=== PATIENT | male | born 1950 ===

== ENCOUNTER 2017-06-27 12:33 | Inpatient (IN) | payer MEDICARE, MEDICAID ==
[2017-06-27 12:33] VITALS: BMI 63.4
--- NOTE | 2017-06-27 13:52 | C.PDOC ---
History Of Present Illness 67 y/o male with history of CHF presents to ED with complaints of dyspnea on exertion and increased low extremity edema. Patient states he has been off lasix for 2 weeks and has been drinking fluids liberally because he became homeless and has been staying in halfway and does not take lasix there because he has to urinate multiple times. Patient denies any other complaints at this time. Time Seen by Provider: 06/27/17 13:42 Chief Complaint (Nursing): Shortness Of Breath History Per: Patient History/Exam Limitations: no limitations Onset/Duration Of Symptoms: Days Current Symptoms Are (Timing): Still Present Past Medical History Reviewed: Historical Data, Nursing Documentation, Vital Signs Vital Signs: Last Vital Signs Temp 98.1 F 06/27/17 21:00 Pulse 73 06/27/17 22:01 Resp 18 06/27/17 21:00 BP 153/74 H 06/27/17 21:12 Pulse Ox 95 06/27/17 21:55 - Medical History PMH: Arthritis (B/L KNEE; BACK), Cardia Arrhythmia, HTN Surgical History: Pacemaker - [facility] Procedures RESPIRATORY VENTILATION, GREATER THAN 96 CONSECUTIVE HOURS (03/17/16) Family History: States: Unknown Family Hx - Social History Hx Alcohol Use: No Hx Substance Use: No - Immunization History Hx Tetanus Toxoid Vaccination: Yes Hx Influenza Vaccination: No Hx Pneumococcal Vaccination: No Review Of Systems Constitutional: Negative for: Fever, Chills Cardiovascular: Negative for: Chest Pain Respiratory: Negative for: Cough, Shortness of Breath Skin: Negative for: Rash Physical Exam - Physical Exam Appears: Non-toxic, No Acute Distress, Other (Morbidly obese) Skin: Warm, Dry, No Rash Head: Atraumatic, Normacephalic Eye(s): bilateral: Normal Inspection Oral Mucosa: Moist Neck: Normal ROM, Supple Cardiovascular: Rhythm Regular, Other (S1S2S3) Respiratory: Rales (Mild), No Rhonchi, No Wheezing Gastrointestinal/Abdominal: Soft, No Tenderness, No Guarding, No Rebound Extremity: Normal ROM, Other (low extremities pitting edema, (+)stasis dermatitis symmetrically b/l) Pulses: Left Dorsalis Pedis: Normal, Right Dorsalis Pedis: Normal Neurological/Psych: Oriented x3, Normal Motor, Normal Sensation ED Course And Treatment - Laboratory Results Result Diagrams: 06/27/17 14:18 06/27/17 14:18 O2 Sat by Pulse Oximetry: 92 (RA) - Radiology CXR: Interpreted by Me CXR Interpretation: Yes: Other (+ mild CHF) Progress Note: 1800: re-eval only 1400 cc urine produced in 4 hours. Lasix 60 IV ordered again. Disposition Doctor Will See Patient In The: Hospital Counseled Patient/Family Regarding: Studies Performed, Diagnosis - Disposition Disposition: HOSPITALIZED Disposition Time: 16:00 Condition: GOOD - Clinical Impression Clinical Impression: Chronic congestive heart failure - Scribe Statement The provider has reviewed the documentation as recorded by the Scribeladia Blackmon All medical record entries made by the Micheleibeladia were at my direction and personally dictated by me. I have reviewed the chart and agree that the record accurately reflects my personal performance of the history, physical exam, medical decision making, and the department course for this patient. I have also personally directed, reviewed, and agree with the discharge instructions and disposition.
--- NOTE | 2017-06-27 14:07 | RAD ---
HISTORY: SOB COMPARISON: Chest x-ray performed 03/26/16 TECHNIQUE: Chest, one view. FINDINGS: LUNGS: Mild right basilar atelectasis/infiltrate. Please note that chest x-ray has limited sensitivity for the detection of pulmonary masses. PLEURA: No significant pleural effusion identified. No definite pneumothorax . CARDIOVASCULAR: Cardiomegaly. Left-sided AICD. Atherosclerotic calcifications. OSSEOUS STRUCTURES: No acute osseous abnormality identified. VISUALIZED UPPER ABDOMEN: Unremarkable. OTHER FINDINGS: None. IMPRESSION: Cardiomegaly. Left-sided pacemaker. Atherosclerotic calcifications. Mild right basilar atelectasis/infiltrate.
[2017-06-27 14:24] LABS: BASO % 0.3 % (0.0-2.0); EOS # 0.4 K/uL (0.0-0.7); EOS % 3.5 % (0.0-4.0); HEMOGLOBIN 12.9 g/dL (12.0-18.0); LYMPH # 1.8 K/uL (1.0-4.3); LYMPH % 17.1 % (20.0-40.0); MEAN CORPUSCULAR HEMOGLOBIN 30.3 pg (27.0-31.0); MEAN CORPUSCULAR HGB CONC 33.6 g/dL (33.0-37.0); MEAN PLATELET VOLUME 7.9 fL (7.2-11.7); MONO # 1.2 K/uL (0.0-0.8); MONO % 11.5 % (0.0-10.0); NEUT # 7.1 K/uL (1.8-7.0); NEUT % 67.6 % (50.0-75.0); NRBC % 0.1 % (0.0-2.0); RBC 4.27 Mil/uL (4.40-5.90); RED CELL DISTRIBUTION WIDTH 13.4 % (11.5-14.5); WHITE BLOOD COUNT 10.5 K/uL (4.8-10.8)
[2017-06-27 14:33] LABS: INR 1.3; PROTHROMBIN TIME 14.2 SECONDS (9.7-12.2)
[2017-06-27 14:49] LABS: ALBUMIN 3.8 g/dL (3.5-5.0); ALT/SGPT 23 U/L (21-72); AST/SGOT 19 U/L (17-59); BLOOD UREA NITROGEN 19 mg/dL (9-20); CALCIUM 8.4 mg/dl (8.6-10.4); GFR AFRICAN-AMERICAN > 60; GFR NON-AFRICAN AMERICAN > 60
[2017-06-27 14:50] LABS: ALB/GLOB RATIO 0.8 (1.0-2.1)
[2017-06-27 15:00] LABS: B-TYPE NATRIURETIC PEPTIDE 172 pg/mL (0-900)
[2017-06-27] MEDS ORDERED: Potassium Chloride 10 mEq ER Tab PO STA (15:04)
[2017-06-27] MEDS ORDERED: Potassium Chloride 20 mEq ER Tab PO ONE (15:22)
[2017-06-27 15:43] LABS: SQUAMOUS EPITHIAL < 1 /hpf (0-5); URINE BACTERIA RARE (<OCC); URINE BILIRUBIN NEGATIVE (NEGATIVE); URINE BLOOD 1+ (NEGATIVE); URINE CLARITY Clear (Clear); URINE COLOR Yellow (YELLOW); URINE GLUCOSE (UA) NORMAL (Normal); URINE LEUKOCYTE ESTERASE 3+ Leu/uL (Negative); URINE NITRATE NEGATIVE (NEGATIVE); URINE PROTEIN NEGATIVE (NEGATIVE); URINE UROBILINOGEN NORMAL mg/dL (0.2-1.0)
--- NOTE | 2017-06-27 16:55 | CP.PCM.HP ---
History of Present Illness - History of Present Illness History of Present Illness: PGY-1 H&P for Dr. Ward CC: Leg swelling This is a 67 year old male with PMHx Cardiac Arrthymia s/p ICD placement, hypertension, severe morbid obesity who presents to the hospital complaining of leg swelling. This began about 2 weeks ago. Patient denies any alleviating or exacerbating factors. There is intermittent pain usually when he wakes up but this quickly resolves. Patient complains of dyspnea on exertion but states that this is chronic. He is unable to ambulate more than half a block before getting fatigued. Patient attributes this to his weight, and he is considering bariatric surgery in the future. Patient states that he has not been taking his furosemide because he does not like that it causes him to urinate excessively. PMHx: Unspecified cardiac arrthymia (unknown to patient why he received the AICD ), HTN, severe morbid obesity PSHx: AICD placement in 2006, battery changed in 2013 Allergies: NKDA Social: Former smoker quit 12 years ago. Used to smoke 2 ppd for about 30-35 years. Denies alcohol, drugs. Lives in a group home at the moment. PMD: Dr. Ward Underpresser Hand: Dr. Robins (AICD was checked 3 weeks ago and is working normally per patient) Home meds: Amlodipine 5 mg PO daily, Coreg 25 mg PO BID, Losartan 100 mg PO daily, Lasix 40 mg PO daily, Aspirin 81 mg PO daily, Nifedipine ER 60 mg PO daily, Digoxin 0.125 mg PO daily, Naproxen 500 mg PO BID Present on Admission - Present on Admission Any Indicators Present on Admission: No Review of Systems - Constitutional Constitutional: absent: Chills, Fever - EENT Eyes: absent: Change in Vision Ears: absent: Decreased Hearing Nose/Mouth/Throat: absent: Nasal Congestion - Cardiovascular Cardiovascular: absent: Chest Pain - Respiratory Respiratory: Dyspnea on Exertion. absent: Cough, Dyspnea - Gastrointestinal Gastrointestinal: absent: Abdominal Pain, Constipation, Diarrhea, Nausea, Vomiting - Genitourinary Genitourinary: absent: Dysuria - Neurological Neurological: absent: Weakness - Psychiatric Psychiatric: absent: Anxiety - Endocrine Endocrine: absent: Fatigue, Palpitations Past Patient History - Past Medical History & Family History Past Medical History?: Yes - Past Social History Smoking Status: Never Smoked - CARDIAC Hx Cardia Arrhythmia: Yes Hx Hypertension: Yes Hx Pacemaker: Yes - MUSCULOSKELETAL/RHEUMATOLOGICAL Hx Arthritis: Yes (B/L KNEE; BACK) - PSYCHIATRIC Hx Substance Use: No - SURGICAL HISTORY Other/Comment: PM - ANESTHESIA Hx Anesthesia: Yes Hx Anesthesia Reactions: No Meds Allergies/Adverse Reactions: Allergies Allergy/AdvReac Type Severity Reaction Status Date / Time No Known Allergies Allergy Verified 12/22/15 14:22 Physical Exam - Constitutional Appears: No Acute Distress - Head Exam Head Exam: ATRAUMATIC, NORMOCEPHALIC - Eye Exam Eye Exam: EOMI, PERRL - ENT Exam ENT Exam: Mucous Membranes Moist - Respiratory Exam Respiratory Exam: Clear to Auscultation Bilateral, NORMAL BREATHING PATTERN. absent: Rales, Rhonchi, Wheezes - Cardiovascular Exam Cardiovascular Exam: REGULAR RHYTHM, +S1, +S2 - GI/Abdominal Exam GI & Abdominal Exam: Normal Bowel Sounds, Soft. absent: Tenderness Additional comments: Severely morbidly obese body habitus - Extremities Exam Additional comments: Non-pitting edema bilaterally. Legs with evidence of venous insufficiency bilaterally with some weeping noted Distal pedal pulses palpated bilaterally - Neurological Exam Neurological exam: Alert, CN II-XII Intact, Oriented x3 - Psychiatric Exam Psychiatric exam: Normal Affect, Normal Mood - Skin Skin Exam: Dry, Warm Results - Vital Signs Recent Vital Signs: Last Vital Signs Temp 98.5 F 06/27/17 15:31 Pulse 76 06/27/17 15:31 Resp 20 06/27/17 15:31 BP 107/66 06/27/17 15:31 Pulse Ox 92 L 06/27/17 16:26 - Labs Result Diagrams: 06/27/17 14:18 06/27/17 14:18 Labs: Laboratory Results - last 24 hr 06/27/17 06/27/17 06/27/17 14:18 14:18 14:18 WBC 10.5 RBC 4.27 L Hgb 12.9 Hct 38.4 MCV 90.0 MCH 30.3 MCHC 33.6 RDW 13.4 Plt Count 340 MPV 7.9 Neut % (Auto) 67.6 Lymph % (Auto) 17.1 L Nobles % (Auto) 11.5 H Eos % (Auto) 3.5 Baso % (Auto) 0.3 Neut # 7.1 H Lymph # 1.8 Nobles # 1.2 H Eos # 0.4 Baso # 0.0 PT 14.2 H INR 1.3 APTT 30 Sodium 136 Potassium 4.0 Chloride 99 Carbon Dioxide 29 Anion Gap 12 BUN 19 Creatinine 0.8 Est GFR ( Amer) > 60 Est GFR (Non-Af Amer) > 60 Random Glucose 104 Calcium 8.4 L Total Bilirubin 0.8 AST 19 ALT 23 Alkaline Phosphatase 78 Troponin I 0.0160 NT-Pro-B Natriuret Pep 172 Total Protein 8.3 Albumin 3.8 Globulin 4.5 H Albumin/Globulin Ratio 0.8 L Urine Color Urine Clarity Urine pH Ur Specific Converse Urine Protein Urine Glucose (UA) Urine Ketones Urine Blood Urine Nitrate Urine Bilirubin Urine Urobilinogen Ur Leukocyte Esterase Urine WBC (Auto) Urine RBC (Auto) Ur Squamous Epith Cells Urine Bacteria 06/27/17 15:33 WBC RBC Hgb Hct MCV MCH MCHC RDW Plt Count MPV Neut % (Auto) Lymph % (Auto) Nobles % (Auto) Eos % (Auto) Baso % (Auto) Neut # Lymph # Nobles # Eos # Baso # PT INR APTT Sodium Potassium Chloride Carbon Dioxide Anion Gap BUN Creatinine Est GFR ( Amer) Est GFR (Non-Af Amer) Random Glucose Calcium Total Bilirubin AST ALT Alkaline Phosphatase Troponin I NT-Pro-B Natriuret Pep Total Protein Albumin Globulin Albumin/Globulin Ratio Urine Color Yellow Urine Clarity Clear Urine pH 5.0 Ur Specific Converse 1.009 Urine Protein Negative Urine Glucose (UA) Normal Urine Ketones Negative Urine Blood 1+ H Urine Nitrate Negative Urine Bilirubin Negative Urine Urobilinogen Normal Ur Leukocyte Esterase 3+ H Urine WBC (Auto) 35 H Urine RBC (Auto) 15 H Ur Squamous Epith Cells < 1 Urine Bacteria Rare Assessment & Plan - Assessment and Plan (Free Text) Plan: Leg swelling Likely due to venous insufficiency This is NOT CHF based on clinical exam and objective findings No congestion seen on CXR. Pro-BNP 172 F/u lower extremity duplex Lasix 80 mg IV Q12 x2 doses followed by 60 mg IV Q12 x2 doses followed by 40 mg IV Q12 x2 doses History of Hypertension Resume home Amlodipine 5 mg PO daily Resume home Coreg 25 mg PO BID Resume home Losartan 100 mg PO daily Resume home Nifedipine ER 60 mg PO daily History of AICD Per patient, it was checked by cardiology 3 weeks ago and is working properly F/u digoxin level before resuming home digoxin 0.125 mg PO daily Prophylactic Measure Heart Healthy Diet Heparin 5000 units SC Q8 Protonix 40 mg PO daily Case DW Dr. Sylvia Fowler PGY-1
[2017-06-28 06:55] LABS: ALB/GLOB RATIO 0.9 (1.0-2.1); ALBUMIN 3.7 g/dL (3.5-5.0); ALT/SGPT 28 U/L (21-72); AST/SGOT 20 U/L (17-59); BLOOD UREA NITROGEN 20 mg/dL (9-20); CALCIUM 8.1 mg/dl (8.6-10.4); GFR AFRICAN-AMERICAN > 60; GFR NON-AFRICAN AMERICAN > 60
[2017-06-28 06:59] LABS: BASO # 0.1 K/uL (0.0-0.2); BASO % 0.6 % (0.0-2.0); EOS # 0.4 K/uL (0.0-0.7); EOS % 3.7 % (0.0-4.0); HEMOGLOBIN 13.1 g/dL (12.0-18.0); LYMPH # 1.8 K/uL (1.0-4.3); MEAN CELL VOLUME 89.2 fL (80.0-94.0); MEAN CORPUSCULAR HEMOGLOBIN 30.4 pg (27.0-31.0); MEAN CORPUSCULAR HGB CONC 34.1 g/dL (33.0-37.0); MEAN PLATELET VOLUME 8.3 fL (7.2-11.7); MONO # 0.9 K/uL (0.0-0.8); MONO % 9.2 % (0.0-10.0); NEUT % 68.5 % (50.0-75.0); RBC 4.3 Mil/uL (4.40-5.90); RED CELL DISTRIBUTION WIDTH 13.6 % (11.5-14.5); WHITE BLOOD COUNT 10.2 K/uL (4.8-10.8)
--- NOTE | 2017-06-28 07:53 | CP.PCM.PN ---
<Yvon Fowler - Last Filed: 06/28/17 20:36> Subjective - Date & Time of Evaluation Date of Evaluation: 06/28/17 Time of Evaluation: 11:10 - Subjective Subjective: Medicine progress note for Dr. Ward Patient seen and examined. Patient reports decreased leg swelling. He is urinating large amounts due to the IV lasix. Patient reports no shortness of breath or other acute complaints. Objective - Vital Signs/Intake and Output Vital Signs (last 24 hours): Temp Pulse Resp BP Pulse Ox 97.2 F L 81 20 126/69 95 06/28/17 04:00 06/28/17 04:42 06/28/17 04:00 06/28/17 04:00 06/28/17 04:00 Intake and Output: 06/28/17 06/28/17 06:59 18:59 Intake Total 240 Output Total 1650 Balance -1410 - Medications Medications: Current Medications Amlodipine Besylate (Norvasc) 5 mg PO DAILY [facility] Aspirin (Aspirin Chewable) 81 mg PO DAILY [facility] Carvedilol (Coreg) 25 mg PO BID [facility] Last Admin: 06/27/17 19:01 Dose: 25 mg Digoxin (Lanoxin) 0.125 mg PO DAILY [facility] Furosemide (Lasix) 80 mg IVP Q12 [facility] Stop: 06/28/17 10:01 Last Admin: 06/27/17 21:12 Dose: 80 mg Furosemide (Lasix) 60 mg IVP Q12 [facility] Stop: 06/29/17 10:01 Furosemide (Lasix) 40 mg IVP Q12H [facility] Stop: 06/30/17 10:01 Heparin Sodium (Porcine) (Heparin) 5,000 units SC Q8 [facility] Last Admin: 06/28/17 05:27 Dose: 5,000 units Losartan Potassium (Cozaar) 100 mg PO DAILY [facility] Nifedipine (Procardia Xl) 60 mg PO DAILY [facility] Pantoprazole Sodium (Protonix Ec Tab) 40 mg PO DAILY [facility] - Labs Labs: 06/28/17 06:33 06/28/17 06:33 PT 14.2 SECONDS (9.7-12.2) H 06/27/17 14:18 INR 1.3 06/27/17 14:18 APTT 30 SECONDS (21-34) 06/27/17 14:18 - Additional Findings Additional findings: - Constitutional Appears: No Acute Distress - Head Exam Head Exam: ATRAUMATIC, NORMOCEPHALIC - Eye Exam Eye Exam: EOMI, PERRL - ENT Exam ENT Exam: Mucous Membranes Moist - Respiratory Exam Respiratory Exam: Clear to Auscultation Bilateral, NORMAL BREATHING PATTERN. absent: Rales, Rhonchi, Wheezes - Cardiovascular Exam Cardiovascular Exam: REGULAR RHYTHM, +S1, +S2 - GI/Abdominal Exam GI & Abdominal Exam: Normal Bowel Sounds, Soft. absent: Tenderness Additional comments: Severely morbidly obese body habitus - Extremities Exam Additional comments: Non-pitting edema bilaterally. Legs with evidence of venous insufficiency bilaterally with some weeping noted Distal pedal pulses palpated bilaterally - Neurological Exam Neurological exam: Alert, CN II-XII Intact, Oriented x3 - Psychiatric Exam Psychiatric exam: Normal Affect, Normal Mood - Skin Skin Exam: Dry, Warm Assessment and Plan - Assessment and Plan (Free Text) Plan: Leg swelling Likely due to venous insufficiency This is NOT CHF based on clinical exam and objective findings No congestion seen on CXR. Pro-BNP 172 F/u lower extremity duplex silver sulfadiazine topical TID to affected regions Per Dr. Ward, once DVT is ruled out, patient may be placed on unna boots Lasix 80 mg IV Q12 x2 doses followed by 60 mg IV Q12 x2 doses followed by 40 mg IV Q12 x2 doses History of Hypertension Resume home Coreg 25 mg PO BID Resume home Losartan 100 mg PO daily Resume home Nifedipine ER 60 mg PO daily History of AICD Per patient, it was checked by cardiology 3 weeks ago and is working properly Resume home digoxin 0.125 mg PO daily Prophylactic Measure Heart Healthy Diet Heparin 5000 units SC Q8 Protonix 40 mg PO daily Case DW Dr. Sylvia Fowler PGY-1 <Angel Ward Jr. - Last Filed: 06/29/17 19:33> Objective - Vital Signs/Intake and Output Vital Signs (last 24 hours): Temp Pulse Resp BP Pulse Ox 98.1 F 66 20 116/74 94 L 06/29/17 15:32 06/29/17 15:32 06/29/17 15:32 06/29/17 18:25 06/29/17 15:32 Intake and Output: 06/29/17 06/30/17 18:59 06:59 Output Total 400 Balance -400 - Medications Medications: Current Medications Aspirin (Aspirin Chewable) 81 mg PO DAILY [facility] Last Admin: 06/29/17 09:56 Dose: 81 mg Carvedilol (Coreg) 25 mg PO BID [facility] Last Admin: 06/29/17 18:25 Dose: 25 mg Digoxin (Lanoxin) 0.125 mg PO DAILY [facility] Last Admin: 06/29/17 09:56 Dose: 0.125 mg Furosemide (Lasix) 40 mg IVP Q12H [facility] Stop: 06/30/17 10:01 Heparin Sodium (Porcine) (Heparin) 5,000 units SC Q8 [facility] Last Admin: 06/29/17 14:09 Dose: 5,000 units Losartan Potassium (Cozaar) 100 mg PO DAILY [facility] Last Admin: 06/29/17 09:56 Dose: 100 mg Naproxen (Anaprox) 275 mg PO BID PRN PRN Reason: Pain, moderate (4-7) Last Admin: 06/29/17 18:25 Dose: 275 mg Nifedipine (Procardia Xl) 60 mg PO DAILY [facility] Last Admin: 06/29/17 09:56 Dose: 60 mg Pantoprazole Sodium (Protonix Ec Tab) 40 mg PO DAILY [facility] Last Admin: 06/29/17 09:57 Dose: 40 mg Silver Sulfadiazine (Silvadene 1% 20 Gm) 1 ea TOP TID [facility] Last Admin: 06/29/17 18:25 Dose: 1 applic - Labs Labs: 06/29/17 06:30 06/29/17 06:30 PT 14.2 SECONDS (9.7-12.2) H 06/27/17 14:18 INR 1.3 06/27/17 14:18 APTT 30 SECONDS (21-34) 06/27/17 14:18 Attending/Attestation - Attestation I have personally seen and examined this patient.: Yes I have fully participated in the care of the patient.: Yes I have reviewed all pertinent clinical information, including history, physical exam and plan: Yes Notes (Text): 06/29/17 19:33 Agree with resident note and plan of care
[2017-06-28] MEDS: Pantoprazole 40 mg EC Tab PO SCH (10:27)
[2017-06-28] MEDS: Digoxin 125 mcg (0.125 mg) Tab PO SCH (10:28)
[2017-06-28] MEDS: Silver Sulfadiazine 1% Cream (20 gm) TOP SCH ×2 (14:20→17:50)
--- NOTE | 2017-06-28 16:24 | CARD ---
APPROVED REPORT EKG Measurement Heart [id number] DE 214P [id number] <Conclusion> Sinus rhythm with 1st degree AV block Right bundle branch block T wave abnormality, consider inferior ischemia Abnormal ECG
[2017-06-29 06:45] LABS: BASO % 0.4 % (0.0-2.0); EOS # 0.3 K/uL (0.0-0.7); EOS % 3.8 % (0.0-4.0); HEMOGLOBIN 12.9 g/dL (12.0-18.0); LYMPH # 1.7 K/uL (1.0-4.3); MEAN CORPUSCULAR HEMOGLOBIN 31.1 pg (27.0-31.0); MEAN CORPUSCULAR HGB CONC 34.9 g/dL (33.0-37.0); MEAN PLATELET VOLUME 8.3 fL (7.2-11.7); MONO # 0.8 K/uL (0.0-0.8); MONO % 9.2 % (0.0-10.0); NEUT # 5.5 K/uL (1.8-7.0); NEUT % 66.6 % (50.0-75.0); NRBC % 0.1 % (0.0-2.0); RBC 4.16 Mil/uL (4.40-5.90); RED CELL DISTRIBUTION WIDTH 13.6 % (11.5-14.5); WHITE BLOOD COUNT 8.3 K/uL (4.8-10.8)
[2017-06-29 07:01] LABS: ALB/GLOB RATIO 0.9 (1.0-2.1); ALBUMIN 3.6 g/dL (3.5-5.0); ALT/SGPT 24 U/L (21-72); AST/SGOT 23 U/L (17-59); BLOOD UREA NITROGEN 19 mg/dL (9-20); GFR AFRICAN-AMERICAN > 60; GFR NON-AFRICAN AMERICAN > 60
[2017-06-29] MEDS: Digoxin 125 mcg (0.125 mg) Tab PO SCH (09:56)
[2017-06-29] MEDS: NIFEdipine 60 mg ER Tab PO SCH (09:56)
[2017-06-29] MEDS: Pantoprazole 40 mg EC Tab PO SCH (09:57)
[2017-06-29] MEDS ORDERED: NIFEdipine 60 mg ER Tab PO SCH (10:00)
[2017-06-29] MEDS ORDERED: Naproxen 275 mg Tab PO ONE (10:21)
[2017-06-29] MEDS: Silver Sulfadiazine 1% Cream (20 gm) TOP SCH ×3 (11:35→18:25)
--- NOTE | 2017-06-29 15:12 | CP.PCM.PN ---
<Victoria Diaz - Last Filed: 06/29/17 17:01> Subjective - Date & Time of Evaluation Date of Evaluation: 06/29/17 Time of Evaluation: 07:00 - Subjective Subjective: Medicine Progress Note: Patient was seen and examined at bedside in the AM. Patient states he still has pain in his lower extremities he states it feels like a burning pain. Patient denies shortness of breath, chest pain, nausea, vomiting, diarrhea or constipation. Objective - Vital Signs/Intake and Output Vital Signs (last 24 hours): Temp Pulse Resp BP Pulse Ox 99 F 79 20 122/75 96 06/29/17 08:26 06/29/17 09:56 06/29/17 08:26 06/29/17 09:57 06/29/17 08:26 Intake and Output: 06/29/17 06/29/17 06:59 18:59 Intake Total 580 Output Total 975 Balance -395 - Medications Medications: Current Medications Aspirin (Aspirin Chewable) 81 mg PO DAILY [facility] Last Admin: 06/29/17 09:56 Dose: 81 mg Carvedilol (Coreg) 25 mg PO BID [facility] Last Admin: 06/29/17 09:56 Dose: 25 mg Digoxin (Lanoxin) 0.125 mg PO DAILY [facility] Last Admin: 06/29/17 09:56 Dose: 0.125 mg Furosemide (Lasix) 40 mg IVP Q12H [facility] Stop: 06/30/17 10:01 Heparin Sodium (Porcine) (Heparin) 5,000 units SC Q8 [facility] Last Admin: 06/29/17 14:09 Dose: 5,000 units Losartan Potassium (Cozaar) 100 mg PO DAILY [facility] Last Admin: 06/29/17 09:56 Dose: 100 mg Nifedipine (Procardia Xl) 60 mg PO DAILY [facility] Last Admin: 06/29/17 09:56 Dose: 60 mg Pantoprazole Sodium (Protonix Ec Tab) 40 mg PO DAILY [facility] Last Admin: 06/29/17 09:57 Dose: 40 mg Silver Sulfadiazine (Silvadene 1% 20 Gm) 1 ea TOP TID [facility] Last Admin: 06/29/17 14:18 Dose: 1 applic - Labs Labs: 06/29/17 06:30 06/29/17 06:30 PT 14.2 SECONDS (9.7-12.2) H 06/27/17 14:18 INR 1.3 06/27/17 14:18 APTT 30 SECONDS (21-34) 06/27/17 14:18 - Constitutional Appears: No Acute Distress - Head Exam Head Exam: ATRAUMATIC, NORMAL INSPECTION - Eye Exam Eye Exam: EOMI, Normal appearance - ENT Exam ENT Exam: Mucous Membranes Moist - Respiratory Exam Respiratory Exam: Clear to Ausculation Bilateral, NORMAL BREATHING PATTERN - Cardiovascular Exam Cardiovascular Exam: REGULAR RHYTHM, +S1, +S2 - GI/Abdominal Exam GI & Abdominal Exam: Soft, Normal Bowel Sounds. absent: Tenderness Additional comments: obese - Extremities Exam Extremities Exam: Normal Inspection - Neurological Exam Neurological Exam: Alert, Awake, Oriented x3 - Psychiatric Exam Psychiatric exam: Normal Affect, Normal Mood - Skin Skin Exam: Erythema (bilateral lower extremties ) Assessment and Plan - Assessment and Plan (Free Text) Assessment: Leg swelling Likely due to venous insufficiency This is NOT CHF based on clinical exam and objective findings No congestion seen on CXR. Pro-BNP 172 lower extremity duplex: negative Naproxen prn for pain silver sulfadiazine topical TID to affected regions Unna boots will be placed tomorrow 06/30/17 Lasix 80 mg IV Q12 x2 doses followed by 60 mg IV Q12 x2 doses followed by 40 mg IV Q12 x2 doses History of Hypertension Resume home Coreg 25 mg PO BID Resume home Losartan 100 mg PO daily Resume home Nifedipine ER 60 mg PO daily History of AICD Per patient, it was checked by cardiology 3 weeks ago and is working properly Resume home digoxin 0.125 mg PO daily Prophylactic Measure Heart Healthy Diet Heparin 5000 units SC Q8 Protonix 40 mg PO daily will discuss case with Dr. Sylvia Diaz PGY-1 <Angel Ward Jr. - Last Filed: 06/29/17 19:34> Objective - Vital Signs/Intake and Output Vital Signs (last 24 hours): Temp Pulse Resp BP Pulse Ox 98.1 F 66 20 116/74 94 L 06/29/17 15:32 06/29/17 15:32 06/29/17 15:32 06/29/17 18:25 06/29/17 15:32 Intake and Output: 06/29/17 06/30/17 18:59 06:59 Output Total 400 Balance -400 - Medications Medications: Current Medications Aspirin (Aspirin Chewable) 81 mg PO DAILY [facility] Last Admin: 06/29/17 09:56 Dose: 81 mg Carvedilol (Coreg) 25 mg PO BID [facility] Last Admin: 06/29/17 18:25 Dose: 25 mg Digoxin (Lanoxin) 0.125 mg PO DAILY [facility] Last Admin: 06/29/17 09:56 Dose: 0.125 mg Furosemide (Lasix) 40 mg IVP Q12H [facility] Stop: 06/30/17 10:01 Heparin Sodium (Porcine) (Heparin) 5,000 units SC Q8 [facility] Last Admin: 06/29/17 14:09 Dose: 5,000 units Losartan Potassium (Cozaar) 100 mg PO DAILY [facility] Last Admin: 06/29/17 09:56 Dose: 100 mg Naproxen (Anaprox) 275 mg PO BID PRN PRN Reason: Pain, moderate (4-7) Last Admin: 06/29/17 18:25 Dose: 275 mg Nifedipine (Procardia Xl) 60 mg PO DAILY [facility] Last Admin: 06/29/17 09:56 Dose: 60 mg Pantoprazole Sodium (Protonix Ec Tab) 40 mg PO DAILY [facility] Last Admin: 06/29/17 09:57 Dose: 40 mg Silver Sulfadiazine (Silvadene 1% 20 Gm) 1 ea TOP TID [facility] Last Admin: 06/29/17 18:25 Dose: 1 applic - Labs Labs: 06/29/17 06:30 06/29/17 06:30 PT 14.2 SECONDS (9.7-12.2) H 06/27/17 14:18 INR 1.3 06/27/17 14:18 APTT 30 SECONDS (21-34) 06/27/17 14:18 Attending/Attestation - Attestation I have personally seen and examined this patient.: Yes I have fully participated in the care of the patient.: Yes I have reviewed all pertinent clinical information, including history, physical exam and plan: Yes Notes (Text): 06/29/17 19:34 Agree with resident note and plan of care
--- NOTE | 2017-06-29 15:15 | VASCLAB ---
PROCEDURE: Lower Extremity Venous Duplex Exam. HISTORY: leg swelling, rule out venous insufficiency PRIORS: None. TECHNIQUE: Bilateral common femoral, femoral, popliteal and posterior tibial, peroneal and great saphenous veins were evaluated. Flow was assessed with color Doppler, compressibility, assessment of phasic flow and augmentation response. Report prepared by Ricardo Bagley, BENITA, RVT FINDINGS: RIGHT: 1. Common Femoral Vein: 1.1. Compressibility - Fully compressible: Thrombus - None : Flow - Phasic: Augmentation -Normal: Reflux - None. 2. Femoral Vein: 2.1. Compressibility - Fully compressible: Thrombus - None : Flow - Phasic: Augmentation -Normal: Reflux - None. 3. Popliteal Vein: 3.1. Compressibility - Fully compressible: Thrombus - None : Flow - Phasic: Augmentation -Normal: Reflux - None. 4. Posterior Tibial Vein: 4.1. Compressibility - Fully compressible: Thrombus - None: Flow - Phasic: Augmentation -Normal: Reflux - None. 5. Peroneal Vein: 5.1. Compressibility - Fully compressible: Thrombus - None: Flow - Phasic: Augmentation -Normal: Reflux - None. 6. Great Saphenous Vein: 6.1. Compressibility - Fully compressible: Thrombus - None: Flow - Phasic: Augmentation - Normal: Reflux - None. LEFT: 1. Common Femoral Vein: 1.1. Compressibility - Fully compressible: Thrombus - None: Flow - Phasic: Augmentation -Normal: Reflux - None. 2. Femoral Vein: 2.1. Compressibility - Fully compressible: Thrombus - None: Flow - Phasic: Augmentation -Normal: Reflux - None. 3. Popliteal Vein: 3.1. Compressibility - Fully compressible: Thrombus - None : Flow - Phasic: Augmentation -Normal: Reflux - None. 4. Posterior Tibial Vein: 4.1. Compressibility - Fully compressible: Thrombus - None: Flow - Phasic: Augmentation -Normal: Reflux - None. 5. Peroneal Vein: 5.1. Compressibility - Fully compressible: Thrombus - None: Flow - Phasic: Augmentation -Normal: Reflux - None. 6. Great Saphenous Vein: 6.1. Compressibility - Fully compressible: Thrombus - None: Flow - Phasic: Augmentation - Normal: Reflux - Yes. OTHER FINDINGS: Right: None significant. Left: Valvular incompetence of the left mid thigh to knee level greater saphenous vein. IMPRESSION: Right: No evidence of deep or superficial vein thrombosis of the right lower extremity.Normal valve function noted of the left side. Left: No evidence of deep or superficial vein thrombosis of the left lower extremity.
[2017-06-29] MEDS ORDERED: Naproxen 275 mg Tab PO PRN (17:00)
--- NOTE | 2017-06-30 06:58 | CP.PCM.PN ---
Subjective - Date & Time of Evaluation Date of Evaluation: 06/30/17 Time of Evaluation: 06:58 - Subjective Subjective: Medicine Progress Note: Patient was seen and examined at bedside in the morning. Patient states he still has pain in his lower extremities but feeling a little better. Patient tolerating diet well and having regular BM. Patient denies shortness of breath , chest pain, nausea, vomiting, diarrhea or constipation. Objective - Vital Signs/Intake and Output Vital Signs (last 24 hours): Temp Pulse Resp BP Pulse Ox 98.4 F 66 20 114/68 95 06/29/17 23:10 06/29/17 23:10 06/29/17 23:10 06/29/17 23:10 06/29/17 23:10 Intake and Output: 06/29/17 06/30/17 18:59 06:59 Intake Total 340 Output Total 400 1900 Balance -400 -1560 - Medications Medications: Current Medications Aspirin (Aspirin Chewable) 81 mg PO DAILY [facility] Last Admin: 06/29/17 09:56 Dose: 81 mg Carvedilol (Coreg) 25 mg PO BID [facility] Last Admin: 06/29/17 18:25 Dose: 25 mg Digoxin (Lanoxin) 0.125 mg PO DAILY [facility] Last Admin: 06/29/17 09:56 Dose: 0.125 mg Furosemide (Lasix) 40 mg IVP Q12H [facility] Stop: 06/30/17 10:01 Last Admin: 06/29/17 22:05 Dose: 40 mg Heparin Sodium (Porcine) (Heparin) 5,000 units SC Q8 [facility] Last Admin: 06/30/17 06:02 Dose: 5,000 units Losartan Potassium (Cozaar) 100 mg PO DAILY [facility] Last Admin: 06/29/17 09:56 Dose: 100 mg Naproxen (Anaprox) 275 mg PO BID PRN PRN Reason: Pain, moderate (4-7) Last Admin: 06/29/17 18:25 Dose: 275 mg Nifedipine (Procardia Xl) 60 mg PO DAILY [facility] Last Admin: 06/29/17 09:56 Dose: 60 mg Pantoprazole Sodium (Protonix Ec Tab) 40 mg PO DAILY [facility] Last Admin: 06/29/17 09:57 Dose: 40 mg Silver Sulfadiazine (Silvadene 1% 20 Gm) 1 ea TOP TID [facility] Last Admin: 06/29/17 18:25 Dose: 1 applic - Labs Labs: 06/29/17 06:30 06/29/17 06:30 PT 14.2 SECONDS (9.7-12.2) H 06/27/17 14:18 INR 1.3 06/27/17 14:18 APTT 30 SECONDS (21-34) 06/27/17 14:18 - Constitutional Appears: No Acute Distress - Head Exam Head Exam: ATRAUMATIC, NORMOCEPHALIC - Eye Exam Eye Exam: EOMI, Normal appearance - ENT Exam ENT Exam: Mucous Membranes Moist - Respiratory Exam Respiratory Exam: Clear to Ausculation Bilateral, Rales, NORMAL BREATHING PATTERN. absent: Rhonchi, Wheezes, Respiratory Distress - Cardiovascular Exam Cardiovascular Exam: REGULAR RHYTHM, +S1, +S2 - GI/Abdominal Exam GI & Abdominal Exam: Soft, Normal Bowel Sounds. absent: Distended, Firm, Tenderness - Extremities Exam Extremities Exam: absent: Normal Inspection Additional comments: Non-pitting edema bilaterally. Legs with evidence of venous insufficiency bilaterally with some weeping noted - Neurological Exam Neurological Exam: Alert, Awake, Oriented x3 - Psychiatric Exam Psychiatric exam: Normal Affect, Normal Mood - Skin Skin Exam: Dry, Intact, Normal Color, Warm Assessment and Plan - Assessment and Plan (Free Text) Plan: 1. Leg swelling Likely due to venous insufficiency This is NOT CHF based on clinical exam and objective findings No congestion seen on CXR. Pro-BNP 172 Lower extremity duplex: No DVTs b/l Discontinued silver sulfadiazine topical TID to affected regions Naproxen 500mg BID prn for pain Lasix 80 mg IV Q12 x2 doses followed by 60 mg IV Q12 x2 doses followed by 40 mg IV Q12 x2 doses Per Dr. Ward, once DVT is ruled out, patient may be placed on unna boots * Unna boots placed on 06/30/17. Must keep on for 7 days. Must cover with cast covers when showering; cannot get wet. * Rocephin 1gm IV Q24h and Vanco 1gm IV Q12h (started on 06/30/17) * PICC line ordered for intermediate antibiotics 2. History of Hypertension Resume home Coreg 25 mg PO BID Resume home Losartan 100 mg PO daily Resume home Nifedipine ER 60 mg PO daily 3. History of AICD Per patient, it was checked by cardiology 3 weeks ago and is working properly Resume home digoxin 0.125 mg PO daily 4. Prophylactic Measure Heart Healthy Diet Heparin 5000 units SC Q8 Protonix 40 mg PO daily Dispo: Case management ordered for DONELL placement. Case Discussed With Dr. Ward
[2017-06-30 07:07] LABS: ALB/GLOB RATIO 0.9 (1.0-2.1); ALBUMIN 3.7 g/dL (3.5-5.0); ALT/SGPT 16 U/L (21-72); AST/SGOT 21 U/L (17-59); BLOOD UREA NITROGEN 18 mg/dL (9-20); CALCIUM 8.1 mg/dl (8.6-10.4); GFR AFRICAN-AMERICAN > 60; GFR NON-AFRICAN AMERICAN > 60
[2017-06-30 07:10] LABS: BASO # 0.1 K/uL (0.0-0.2); BASO % 1.2 % (0.0-2.0); EOS # 0.3 K/uL (0.0-0.7); EOS % 3.7 % (0.0-4.0); HEMOGLOBIN 12.8 g/dL (12.0-18.0); LYMPH % 21.7 % (20.0-40.0); MEAN CELL VOLUME 89.1 fL (80.0-94.0); MEAN CORPUSCULAR HEMOGLOBIN 30.7 pg (27.0-31.0); MEAN CORPUSCULAR HGB CONC 34.5 g/dL (33.0-37.0); MEAN PLATELET VOLUME 8.6 fL (7.2-11.7); MONO # 0.9 K/uL (0.0-0.8); NEUT # 5.9 K/uL (1.8-7.0); NEUT % 63.4 % (50.0-75.0); NRBC % 0.3 % (0.0-2.0); RBC 4.18 Mil/uL (4.40-5.90); RED CELL DISTRIBUTION WIDTH 13.3 % (11.5-14.5); WHITE BLOOD COUNT 9.3 K/uL (4.8-10.8)
[2017-06-30] MEDS: Digoxin 125 mcg (0.125 mg) Tab PO SCH (10:20)
[2017-06-30] MEDS: Pantoprazole 40 mg EC Tab PO SCH (10:20)
[2017-06-30] MEDS: NIFEdipine 60 mg ER Tab PO SCH (10:20)
[2017-06-30] MEDS: Silver Sulfadiazine 1% Cream (20 gm) TOP SCH (10:56)
[2017-06-30] MEDS: Vancomycin 1 gm/NS 200 ml 1 GM/200 ML BAG IVPB SCH (13:55)
[2017-06-30] MEDS: Naproxen 550 mg Tab PO PRN (22:22)
[2017-07-01] MEDS: Vancomycin 1 gm/NS 200 ml 1 GM/200 ML BAG IVPB SCH ×2 (02:49→13:30)
[2017-07-01 06:30] LABS: BASO % 0.4 % (0.0-2.0); EOS # 0.3 K/uL (0.0-0.7); EOS % 4.2 % (0.0-4.0); HEMOGLOBIN 12.8 g/dL (12.0-18.0); LYMPH # 2.1 K/uL (1.0-4.3); LYMPH % 25.1 % (20.0-40.0); MEAN CELL VOLUME 88.7 fL (80.0-94.0); MEAN PLATELET VOLUME 8.1 fL (7.2-11.7); MONO # 0.7 K/uL (0.0-0.8); NEUT % 61.3 % (50.0-75.0); NRBC % 0.1 % (0.0-2.0); RBC 4.13 Mil/uL (4.40-5.90); RED CELL DISTRIBUTION WIDTH 13.5 % (11.5-14.5); WHITE BLOOD COUNT 8.2 K/uL (4.8-10.8)
[2017-07-01 06:50] LABS: ALBUMIN 3.6 g/dL (3.5-5.0); ALT/SGPT 18 U/L (21-72); AST/SGOT 17 U/L (17-59); BLOOD UREA NITROGEN 17 mg/dL (9-20); CALCIUM 7.9 mg/dl (8.6-10.4); GFR AFRICAN-AMERICAN > 60; GFR NON-AFRICAN AMERICAN > 60
--- NOTE | 2017-07-01 07:34 | CP.PCM.PN ---
Subjective - Date & Time of Evaluation Date of Evaluation: 07/01/17 Time of Evaluation: 07:32 - Subjective Subjective: PGY-[address] Ward's service: Pt seen and examined at bedside. Nursing reports no acute events overnight. Patient states he still has pain in his lower extremities but feeling a little better. Patient tolerating diet well and having regular BM. Patient denies shortness of breath, chest pain, nausea, vomiting, diarrhea or constipation. Objective - Vital Signs/Intake and Output Vital Signs (last 24 hours): Temp Pulse Resp BP Pulse Ox 97.7 F 68 20 122/85 95 07/01/17 04:00 07/01/17 04:07 07/01/17 04:00 07/01/17 04:00 07/01/17 04:00 Intake and Output: 07/01/17 07/01/17 06:59 18:59 Intake Total 480 Output Total 900 Balance -420 - Medications Medications: Current Medications Aspirin (Aspirin Chewable) 81 mg PO DAILY [facility] Last Admin: 06/30/17 10:20 Dose: 81 mg Carvedilol (Coreg) 25 mg PO BID [facility] Last Admin: 06/30/17 22:17 Dose: 25 mg Digoxin (Lanoxin) 0.125 mg PO DAILY [facility] Last Admin: 06/30/17 10:20 Dose: 0.125 mg Heparin Sodium (Porcine) (Heparin) 5,000 units SC Q8 [facility] Last Admin: 07/01/17 06:31 Dose: 5,000 units Ceftriaxone Sodium 1 gm/ (Sodium Chloride) 100 mls @ 100 mls/hr IVPB Q24H [facility] Last Admin: 06/30/17 12:30 Dose: 100 mls/hr Vancomycin/Sodium Chloride (Vancomycin 1 Gm/Ns 200 Ml) 1 gm in 200 mls @ 133.333 mls/hr IVPB Q12H [facility] Stop: 07/05/17 14:01 Last Admin: 07/01/17 02:49 Dose: 133.333 mls/hr Losartan Potassium (Cozaar) 100 mg PO DAILY [facility] Last Admin: 06/30/17 10:20 Dose: 100 mg Naproxen (Anaprox Ds) 550 mg PO BID PRN PRN Reason: Pain, Mild (1-3) Last Admin: 06/30/17 22:22 Dose: 550 mg Nifedipine (Procardia Xl) 60 mg PO DAILY [facility] Last Admin: 06/30/17 10:20 Dose: 60 mg Pantoprazole Sodium (Protonix Ec Tab) 40 mg PO DAILY [facility] Last Admin: 06/30/17 10:20 Dose: 40 mg - Labs Labs: 07/01/17 06:21 07/01/17 06:21 PT 14.2 SECONDS (9.7-12.2) H 06/27/17 14:18 INR 1.3 06/27/17 14:18 APTT 30 SECONDS (21-34) 06/27/17 14:18 - Additional Findings Additional findings: - Constitutional Appears: No Acute Distress - Head Exam Head Exam: ATRAUMATIC, NORMOCEPHALIC - Eye Exam Eye Exam: EOMI, Normal appearance - ENT Exam ENT Exam: Mucous Membranes Moist - Respiratory Exam Respiratory Exam: Clear to Ausculation Bilateral, Rales, NORMAL BREATHING PATTERN. absent: Rhonchi, Wheezes, Respiratory Distress - Cardiovascular Exam Cardiovascular Exam: REGULAR RHYTHM, +S1, +S2 - GI/Abdominal Exam GI & Abdominal Exam: Soft, Normal Bowel Sounds. absent: Distended, Firm, Tenderness - Extremities Exam Extremities Exam: absent: Normal Inspection Additional comments: Non-pitting edema bilaterally. Legs with evidence of venous insufficiency bilaterally with some weeping noted - Neurological Exam Neurological Exam: Alert, Awake, Oriented x3 - Psychiatric Exam Psychiatric exam: Normal Affect, Normal Mood - Skin Skin Exam: Dry, Intact, Normal Color, Warm Assessment and Plan - Assessment and Plan (Free Text) Plan: 1. Leg swelling Likely due to venous insufficiency This is NOT CHF based on clinical exam and objective findings No congestion seen on CXR. Pro-BNP 172 Lower extremity duplex: No DVTs b/l Discontinued silver sulfadiazine topical TID to affected regions Naproxen 500mg BID prn for pain Lasix 80 mg IV Q12 x2 doses followed by 60 mg IV Q12 x2 doses followed by 40 mg IV Q12 x2 doses Per Dr. Ward, once DVT is ruled out, patient may be placed on unna boots * Unna boots placed on 06/30/17. Must keep on for 7 days. Must cover with cast covers when showering; cannot get wet. * Rocephin 1gm IV Q24h and Vanco 1gm IV Q12h (started on 06/30/17) * PICC line ordered for [facility] antibiotics 2. History of Hypertension Well controlled during admission Resume home Coreg 25 mg PO BID [facility] home Losartan 100 mg PO daily [facility] Nifedipine ER 60 mg PO daily 3. History of AICD Per patient, it was checked by cardiology 3 weeks ago and is working properly Resume home digoxin 0.125 mg PO daily 4. Prophylactic Measure Heart Healthy Diet Heparin 5000 units SC Q8 Protonix 40 mg PO daily Dispo: Case management ordered for DONELL placement. Case Discussed With Dr. Ward
[2017-07-01] MEDS: Naproxen 550 mg Tab PO PRN (09:50)
[2017-07-01] MEDS: NIFEdipine 60 mg ER Tab PO SCH (09:50)
[2017-07-01] MEDS: Pantoprazole 40 mg EC Tab PO SCH (09:50)
[2017-07-01] MEDS: Digoxin 125 mcg (0.125 mg) Tab PO SCH (09:50)
[2017-07-02] MEDS: Vancomycin 1 gm/NS 200 ml 1 GM/200 ML BAG IVPB SCH ×2 (01:17→14:00)
--- NOTE | 2017-07-02 07:42 | CP.PCM.PN ---
Subjective - Date & Time of Evaluation Date of Evaluation: 07/02/17 Time of Evaluation: 07:40 - Subjective Subjective: PGY-[address] Ward's service: Pt seen and examined at bedside. Nursing reports no acute events overnight. Patient states he still has occasional pain in his lower extremities but this has been a chronic finding. Patient tolerating diet well and having regular BM. Patient denies shortness of breath, chest pain, nausea, vomiting, diarrhea or constipation. Objective - Vital Signs/Intake and Output Vital Signs (last 24 hours): Temp Pulse Resp BP Pulse Ox 97.8 F 69 20 114/67 95 07/01/17 23:05 07/01/17 23:55 07/01/17 23:05 07/01/17 23:05 07/01/17 23:05 Intake and Output: 07/02/17 07/02/17 06:59 18:59 Intake Total 545 Output Total 350 Balance 195 - Medications Medications: Current Medications Aspirin (Aspirin Chewable) 81 mg PO DAILY [facility] Last Admin: 07/01/17 09:50 Dose: 81 mg Carvedilol (Coreg) 25 mg PO BID [facility] Last Admin: 07/01/17 17:30 Dose: 25 mg Digoxin (Lanoxin) 0.125 mg PO DAILY [facility] Last Admin: 07/01/17 09:50 Dose: 0.125 mg Heparin Sodium (Porcine) (Heparin) 5,000 units SC Q8 [facility] Last Admin: 07/02/17 06:03 Dose: 5,000 units Ceftriaxone Sodium 1 gm/ (Sodium Chloride) 100 mls @ 100 mls/hr IVPB Q24H [facility] Last Admin: 07/01/17 12:30 Dose: 100 mls/hr Vancomycin/Sodium Chloride (Vancomycin 1 Gm/Ns 200 Ml) 1 gm in 200 mls @ 133.333 mls/hr IVPB Q12H [facility] Stop: 07/05/17 14:01 Last Admin: 07/02/17 01:17 Dose: 133.333 mls/hr Losartan Potassium (Cozaar) 100 mg PO DAILY [facility] Last Admin: 07/01/17 09:50 Dose: 100 mg Naproxen (Anaprox Ds) 550 mg PO BID PRN PRN Reason: Pain, Mild (1-3) Last Admin: 07/01/17 09:50 Dose: 550 mg Nifedipine (Procardia Xl) 60 mg PO DAILY [facility] Last Admin: 07/01/17 09:50 Dose: 60 mg Pantoprazole Sodium (Protonix Ec Tab) 40 mg PO DAILY [facility] Last Admin: 07/01/17 09:50 Dose: 40 mg Temazepam (Restoril) 15 mg PO HS PRN PRN Reason: Insomnia Last Admin: 07/02/17 01:22 Dose: 15 mg - Labs Labs: 07/01/17 06:21 07/01/17 06:21 PT 14.2 SECONDS (9.7-12.2) H 06/27/17 14:18 INR 1.3 06/27/17 14:18 APTT 30 SECONDS (21-34) 06/27/17 14:18 - Additional Findings Additional findings: - Constitutional Appears: No Acute Distress - Head Exam Head Exam: ATRAUMATIC, NORMOCEPHALIC - Eye Exam Eye Exam: EOMI, Normal appearance - ENT Exam ENT Exam: Mucous Membranes Moist - Respiratory Exam Respiratory Exam: Clear to Ausculation Bilateral, Rales, NORMAL BREATHING PATTERN. absent: Rhonchi, Wheezes, Respiratory Distress - Cardiovascular Exam Cardiovascular Exam: REGULAR RHYTHM, +S1, +S2 - GI/Abdominal Exam GI & Abdominal Exam: Soft, Normal Bowel Sounds. absent: Distended, Firm, Tenderness - Extremities Exam Extremities Exam: absent: Normal Inspection Additional comments: Non-pitting edema bilaterally. Legs with evidence of venous insufficiency bilaterally with some weeping noted - Neurological Exam Neurological Exam: Alert, Awake, Oriented x3 - Psychiatric Exam Psychiatric exam: Normal Affect, Normal Mood - Skin Skin Exam: Dry, Intact, Normal Color, Warm Assessment and Plan - Assessment and Plan (Free Text) Plan: 1. Leg swelling Likely due to venous insufficiency This is NOT CHF based on clinical exam and objective findings No congestion seen on CXR. Pro-BNP 172 Lower extremity duplex: No DVTs b/l Discontinued silver sulfadiazine topical TID to affected regions Naproxen 500mg BID prn for pain Lasix 80 mg IV Q12 x2 doses followed by 60 mg IV Q12 x2 doses followed by 40 mg IV Q12 x2 doses Per Dr. Ward, once DVT is ruled out, patient may be placed on unna boots * Unna boots placed on 06/30/17. Must keep on for 7 days. Must cover with cast covers when showering; cannot get wet. * Rocephin 1gm IV Q24h and Vanco 1gm IV Q12h (started on 06/30/17) * PICC line ordered for shelter antibiotics 2. History of Hypertension Well controlled during admission Resume home Coreg 25 mg PO BID Resume home Losartan 100 mg PO daily Resume home Nifedipine ER 60 mg PO daily 3. History of AICD Per patient, it was checked by cardiology 3 weeks ago and is working properly Resume home digoxin 0.125 mg PO daily 4. Insomnia Temazepam 30mg PO HS 5. Prophylactic Measure Heart Healthy Diet Heparin 5000 units SC Q8 Protonix 40 mg PO daily Dispo: Case management ordered for DONELL placement. Case Discussed With Dr. Ward
[2017-07-02 07:56] LABS: BASO # 0.1 K/uL (0.0-0.2); BASO % 0.8 % (0.0-2.0); EOS # 0.4 K/uL (0.0-0.7); HEMOGLOBIN 13.4 g/dL (12.0-18.0); LYMPH # 2.1 K/uL (1.0-4.3); LYMPH % 21.8 % (20.0-40.0); MEAN CELL VOLUME 90.4 fL (80.0-94.0); MEAN CORPUSCULAR HEMOGLOBIN 30.4 pg (27.0-31.0); MEAN CORPUSCULAR HGB CONC 33.6 g/dL (33.0-37.0); MONO # 0.8 K/uL (0.0-0.8); MONO % 8.2 % (0.0-10.0); NEUT # 6.2 K/uL (1.8-7.0); NEUT % 65.2 % (50.0-75.0); NRBC % 0.1 % (0.0-2.0); RBC 4.42 Mil/uL (4.40-5.90); RED CELL DISTRIBUTION WIDTH 13.7 % (11.5-14.5); WHITE BLOOD COUNT 9.5 K/uL (4.8-10.8)
[2017-07-02 08:15] LABS: ALB/GLOB RATIO 0.9 (1.0-2.1); ALBUMIN 3.9 g/dL (3.5-5.0); ALT/SGPT 19 U/L (21-72); AST/SGOT 24 U/L (17-59); BLOOD UREA NITROGEN 18 mg/dL (9-20); CALCIUM 8.2 mg/dl (8.6-10.4); GFR AFRICAN-AMERICAN > 60; GFR NON-AFRICAN AMERICAN > 60
[2017-07-02] MEDS: Naproxen 550 mg Tab PO PRN ×2 (09:50→17:24)
[2017-07-02] MEDS: Digoxin 125 mcg (0.125 mg) Tab PO SCH (10:58)
[2017-07-02] MEDS: NIFEdipine 60 mg ER Tab PO SCH (10:59)
[2017-07-02] MEDS: Pantoprazole 40 mg EC Tab PO SCH (10:59)
[2017-07-02 11:00] VITALS: PULSE 71
[2017-07-03] MEDS: Vancomycin 1 gm/NS 200 ml 1 GM/200 ML BAG IVPB SCH ×2 (02:15→14:37)
[2017-07-03 06:37] LABS: BASO # 0.1 K/uL (0.0-0.2); BASO % 0.7 % (0.0-2.0); EOS # 0.3 K/uL (0.0-0.7); EOS % 3.3 % (0.0-4.0); LYMPH # 2.1 K/uL (1.0-4.3); LYMPH % 23.6 % (20.0-40.0); MEAN CELL VOLUME 90.2 fL (80.0-94.0); MEAN CORPUSCULAR HEMOGLOBIN 30.6 pg (27.0-31.0); MEAN PLATELET VOLUME 8.1 fL (7.2-11.7); MONO # 0.7 K/uL (0.0-0.8); MONO % 8.2 % (0.0-10.0); NEUT # 5.8 K/uL (1.8-7.0); NEUT % 64.2 % (50.0-75.0); NRBC % 0.1 % (0.0-2.0); RBC 4.23 Mil/uL (4.40-5.90); RED CELL DISTRIBUTION WIDTH 13.8 % (11.5-14.5)
[2017-07-03 07:59] LABS: ALB/GLOB RATIO 0.9 (1.0-2.1); ALBUMIN 3.7 g/dL (3.5-5.0); ALT/SGPT 24 U/L (21-72); AST/SGOT 20 U/L (17-59); BLOOD UREA NITROGEN 16 mg/dL (9-20); CALCIUM 8.2 mg/dl (8.6-10.4); GFR AFRICAN-AMERICAN > 60; GFR NON-AFRICAN AMERICAN > 60; MAGNESIUM 2.2 mg/dL (1.6-2.3)
[2017-07-03] MEDS: Pantoprazole 40 mg EC Tab PO SCH (10:17)
[2017-07-03] MEDS: NIFEdipine 60 mg ER Tab PO SCH (10:17)
[2017-07-03] MEDS: Digoxin 125 mcg (0.125 mg) Tab PO SCH (10:18)
[2017-07-03] MEDS: Naproxen 550 mg Tab PO PRN ×2 (10:23→17:59)
--- NOTE | 2017-07-03 12:19 | RAD ---
HISTORY: verify right PICC COMPARISON: No prior. FINDINGS: Interval placement right-sided PICC line with tip in the SVC. LUNGS: Poor inspiration low lung volumes and crowded bronchovascular markings with apparent bibasilar atelectasis. Additionally however the central pulmonary vasculature is slightly increased; rule out developing and or mild chronic compensated pulmonary edema/ CHF. Left CP angle is partially obscured possibly due to overlying artifact. Tiny bilateral effusions not excluded. PLEURA: No significant pleural effusion identified, no pneumothorax apparent. CARDIOVASCULAR: No change bipolar pacemaker/ defibrillator. Heart remains markedly enlarged. OSSEOUS STRUCTURES: No significant abnormalities. VISUALIZED UPPER ABDOMEN: Normal. OTHER FINDINGS: None. IMPRESSION: Poor inspiration low lung volumes and crowded bronchovascular markings with apparent bibasilar atelectasis. Additionally however the central pulmonary vasculature is slightly increased; rule out developing and or mild chronic compensated pulmonary edema/ CHF. Left CP angle is partially obscured possibly due to overlying artifact. Tiny bilateral effusions not excluded.
--- NOTE | 2017-07-03 13:06 | CP.PCM.DIS ---
Provider - Provider Date of Admission: 06/27/17 15:02 Attending physician: Agnel Ward Jr, MD Time Spent in preparation of Discharge (in minutes): 45 Hospital Course - Lab Results Lab Results: Most Recent Lab Values WBC 9.0 K/uL (4.8-10.8) 07/03/17 06:27 RBC 4.23 Mil/uL (4.40-5.90) L 07/03/17 06:27 Hgb 13.0 g/dL (12.0-18.0) 07/03/17 06:27 Hct 38.2 % (35.0-51.0) 07/03/17 06:27 MCV 90.2 fL (80.0-94.0) 07/03/17 06:27 MCH 30.6 pg (27.0-31.0) 07/03/17 06:27 MCHC 34.0 g/dL (33.0-37.0) 07/03/17 06:27 RDW 13.8 % (11.5-14.5) 07/03/17 06:27 Plt Count 315 K/uL (130-400) 07/03/17 06:27 MPV 8.1 fL (7.2-11.7) 07/03/17 06:27 Neut % (Auto) 64.2 % (50.0-75.0) 07/03/17 06:27 Lymph % (Auto) 23.6 % (20.0-40.0) 07/03/17 06:27 [place] % (Auto) 8.2 % (0.0-10.0) 07/03/17 06:27 Eos % (Auto) 3.3 % (0.0-4.0) 07/03/17 06:27 Baso % (Auto) 0.7 % (0.0-2.0) 07/03/17 06:27 Neut # 5.8 K/uL (1.8-7.0) 07/03/17 06:27 Lymph # 2.1 K/uL (1.0-4.3) 07/03/17 06:27 [place] # 0.7 K/uL (0.0-0.8) 07/03/17 06:27 Eos # 0.3 K/uL (0.0-0.7) 07/03/17 06:27 Baso # 0.1 K/uL (0.0-0.2) 07/03/17 06:27 PT 14.2 SECONDS (9.7-12.2) H 06/27/17 14:18 INR 1.3 06/27/17 14:18 APTT 30 SECONDS (21-34) 06/27/17 14:18 Sodium 134 mmol/L (132-148) 07/03/17 06:27 Potassium 4.1 mmol/L (3.6-5.2) 07/03/17 06:27 Chloride 98 mmol/L (98-107) 07/03/17 06:27 Carbon Dioxide 32 mmol/L (22-30) H 07/03/17 06:27 Anion Gap 8 (10-20) L 07/03/17 06:27 BUN 16 mg/dL (9-20) 07/03/17 06:27 Creatinine 0.8 mg/dL (0.8-1.5) 07/03/17 06:27 Est GFR ( Amer) > 60 07/03/17 06:27 Est GFR (Non-Af Amer) > 60 07/03/17 06:27 Random Glucose 94 mg/dL (75-110) 07/03/17 06:27 Calcium 8.2 mg/dl (8.6-10.4) L 07/03/17 06:27 Phosphorus 3.6 mg/dL (2.5-4.5) 07/03/17 06:27 Magnesium 2.2 mg/dL (1.6-2.3) 07/03/17 06:27 Total Bilirubin 0.6 mg/dL (0.2-1.3) 07/03/17 06:27 AST 20 U/L (17-59) 07/03/17 06:27 ALT 24 U/L (21-72) 07/03/17 06:27 Alkaline Phosphatase 72 U/L (38-126) 07/03/17 06:27 Troponin I 0.0160 ng/mL (0.00-0.120) 06/27/17 14:18 NT-Pro-B Natriuret Pep 172 pg/mL (0-900) 06/27/17 14:18 Total Protein 7.9 g/dL (6.3-8.3) 07/03/17 06:27 Albumin 3.7 g/dL (3.5-5.0) 07/03/17 06:27 Globulin 4.2 gm/dL (2.2-3.9) H 07/03/17 06:27 Albumin/Globulin Ratio 0.9 (1.0-2.1) L 07/03/17 06:27 Urine Color Yellow (YELLOW) 06/27/17 15:33 Urine Clarity Clear (Clear) 06/27/17 15:33 Urine pH 5.0 (5.0-8.0) 06/27/17 15:33 Ur Specific Backus 1.009 (1.003-1.030) 06/27/17 15:33 Urine Protein Negative mg/dL (NEGATIVE) 06/27/17 15:33 Urine Glucose (UA) Normal mg/dL (Normal) 06/27/17 15:33 Urine Ketones Negative mg/dL (NEGATIVE) 06/27/17 15:33 Urine Blood 1+ (NEGATIVE) H 06/27/17 15:33 Urine Nitrate Negative (NEGATIVE) 06/27/17 15:33 Urine Bilirubin Negative (NEGATIVE) 06/27/17 15:33 Urine Urobilinogen Normal mg/dL (0.2-1.0) 06/27/17 15:33 Ur Leukocyte Esterase 3+ Champ/uL (Negative) H 06/27/17 15:33 Urine WBC (Auto) 35 /hpf (0-5) H 06/27/17 15:33 Urine RBC (Auto) 15 /hpf (0-3) H 06/27/17 15:33 Ur Squamous Epith Cells < 1 /hpf (0-5) 06/27/17 15:33 Urine Bacteria Rare (<OCC) 06/27/17 15:33 Digoxin 1.0 ng/mL (0.8-2.0) 06/27/17 19:45 - Hospital Course Hospital Course: CC: Leg swelling HPI: This is a 67 year old male with PMHx Cardiac Arrthymia s/p ICD placement, hypertension, severe morbid obesity who presents to the hospital complaining of leg swelling. This began about 2 weeks ago. Patient denies any alleviating or exacerbating factors. There is intermittent pain usually when he wakes up but this quickly resolves. Patient complains of dyspnea on exertion but states that this is chronic. He is unable to ambulate more than half a block before getting fatigued. Patient attributes this to his weight, and he is considering bariatric surgery in the future. Patient states that he has not been taking his furosemide because he does not like that it causes him to urinate excessively. PMHx: Unspecified cardiac arrthymia (unknown to patient why he received the AICD ), HTN, severe morbid obesity PSHx: AICD placement in 2006, battery changed in 2013 Allergies: NKDA Social: Former smoker quit 12 years ago. Used to smoke 2 ppd for about 30-35 years. Denies alcohol, drugs. Lives in a [facility] at the moment. PMD: Dr. Ward Saw Superintendent: Dr. Robins (AICD was checked 3 weeks ago and is working normally per patient) Home meds: Amlodipine 5 mg PO daily, Coreg 25 mg PO BID, Losartan 100 mg PO daily, Lasix 40 mg PO daily, Aspirin 81 mg PO daily, Nifedipine ER 60 mg PO daily, Digoxin 0.125 mg PO daily, Naproxen 500 mg PO BID Hospital Course: Patient was admitted on 06/27/17 for leg swelling due to CHF; however, based on findings, not CHF exacerbation. Patient ad leg swelling due to venous insufficiency. Labs were drawn and imaging done. Venous dopplers were done to rule out DVTs, which shown no DVTs bilaterally. Chest xray showed no congestion. Patient was given Lasix 80 mg IV Q12 x2 doses followed by 60 mg IV Q12 x2 doses followed by 40 mg IV Q12 x2 doses. Silver sulfadiazine was applied to affected lesions on lower extremities caused by venous stasis. Topical medication was then discontinued and Unna boots were applied on 06/30/17, which need to be kept on for total of 7 days. Rocephin and vancomycin were started. PICC line was placed on 07/03/17 for mcc antibiotic use. Patient's history of hypertension was monitored and managed throughout hospital stay. Home medications were restarted. Patient was accepted to [facility]. Patient is stable for discharge to [facility] on Dr. Ward's service. Patient must continue antibiotics via PICC line for 10 days. Patient must keep on Unna boots for total of 7 days. This is a brief summary of the hospital course. Please see EMR for more details. Discharge Exam - Additional Findings Additional findings: - Constitutional Appears: No Acute Distress - Head Exam Head Exam: ATRAUMATIC, NORMOCEPHALIC - Eye Exam Eye Exam: EOMI, Normal appearance - ENT Exam ENT Exam: Mucous Membranes Moist - Respiratory Exam Respiratory Exam: Clear to Ausculation Bilateral, Rales, NORMAL BREATHING PATTERN. absent: Rhonchi, Wheezes, Respiratory Distress - Cardiovascular Exam Cardiovascular Exam: REGULAR RHYTHM, +S1, +S2 - GI/Abdominal Exam GI & Abdominal Exam: Soft, Normal Bowel Sounds. absent: Distended, Firm, Tenderness - Extremities Exam Extremities Exam: absent: Normal Inspection Additional comments: Non-pitting edema bilaterally. Unna boots and sony wrap in place- clean, dry, intact - Neurological Exam Neurological Exam: Alert, Awake, Oriented x3 - Psychiatric Exam Psychiatric exam: Normal Affect, Normal Mood - Skin Skin Exam: Dry, Intact, Normal Color, Warm Discharge Plan - Follow Up Plan Condition: STABLE Disposition: REHAB FACILITY/REHAB UNIT Additional Instructions: Patient is stable for discharge to [facility] under Dr. Ward's service. Patient must continue all medications. Patient must continue antibiotics for 10 more days. Patient must keep Unna boots on for total of 7 days (last day 07/06/17). Patient must follow up with PMD within 1 week of discharge. If symptoms reoccur or worsen, patient should return to the ED.
--- NOTE | 2017-07-03 13:39 | PCM.HF ---
Heart Failure Core Measure - Heart Failure Ejection Fraction: 40 % or Greater FLAVIA Inhibitor Prescribed: No Contraindication/Reason for not providing: ON ARB Beta-Felicia Prescribed: Carvedilol Angiotensin II Receptor Felicia Prescribed: Yes AnticoagulationTherapy for Atrial Fibrillation/Atrialflutter: No Contraindication/Reason for not providing: NO AFIB Aldosterone Antagonist Prescribed: No Contraindication/Reason for not providing: EF >40 Hydralazine Nitrate Prescribed: No Contraindication/Reason for not providing: EF >40 Implantable Cardioverter Defibrillator Therapy: No Contraindication/Reason for not providing: ALREADY HAS AICD Cardiac Resynchronization Therapy Prescribed: No Contraindication/Reason for not providing: ALREADY HAS AICD - Follow up Will be discharged to: Home Follow Up Date (must be within 7 days from discharge): 07/10/17 Follow Up Time: 09:00
[2017-07-03 16:04] VITALS: PULSE 62; RESP 20; TEMP 98.6; O2SAT 92
[2017-07-03 17:55] VITALS: BP 121/70
== END 2017-07-03 22:00 | DRG 292 ==
LOC: C.ER 12:33 → C.9E 15:02 → C.6T 20:06
PROVIDERS: ADMIT Internal Medicine; ATTEND Internal Medicine
PROC: 02HV33Z Insertion of Infusion Device into Superior Vena Cava, Percutaneous Approach (ICD-10-PCS; principal; 2017-06-30)
DX: I11.0 Hypertensive heart disease with heart failure (principal); Z68.43 Body mass index [BMI] 50.0-59.9, adult; E66.01 Morbid (severe) obesity due to excess calories; K21.9 Gastro-esophageal reflux disease without esophagitis; Z87.891 Personal history of nicotine dependence; I50.9 Heart failure, unspecified; Z95.0 Presence of cardiac pacemaker; Z95.810 Presence of automatic (implantable) cardiac defibrillator; I87.2 Venous insufficiency (chronic) (peripheral)

== ENCOUNTER 2017-07-20 11:54 | Inpatient (IN) | payer MEDICAID, MEDICARE ==
[2017-07-20 11:54] VITALS: BMI 63.4
[2017-07-20 14:07] LABS: BASO # 0.1 K/uL (0.0-0.2); EOS # 0.3 K/uL (0.0-0.7); EOS % 4.3 % (0.0-4.0); LYMPH # 1.2 K/uL (1.0-4.3); LYMPH % 16.6 % (20.0-40.0); MEAN CELL VOLUME 90.6 fL (80.0-94.0); MEAN CORPUSCULAR HEMOGLOBIN 30.9 pg (27.0-31.0); MEAN CORPUSCULAR HGB CONC 34.2 g/dL (33.0-37.0); MEAN PLATELET VOLUME 8.4 fL (7.2-11.7); MONO % 13.4 % (0.0-10.0); NEUT # 4.6 K/uL (1.8-7.0); NEUT % 64.7 % (50.0-75.0); NRBC % 0.1 % (0.0-2.0); RBC 4.21 Mil/uL (4.40-5.90); RED CELL DISTRIBUTION WIDTH 14.3 % (11.5-14.5); WHITE BLOOD COUNT 7.2 K/uL (4.8-10.8)
[2017-07-20 14:16] LABS: INR 1.2; PROTHROMBIN TIME 13.7 SECONDS (9.7-12.2)
--- NOTE | 2017-07-20 15:02 | C.PDOC ---
History Of Present Illness 67 y/o male presents to the ER complaining of swelling and erythema in the bilateral lower legs which has been present for the past 3 days. Patient states that he is taking ""unknown abx" for the past 12 days which were prescribed by his PCP, Dr. Ward. The abx did not help him so he went to [facility] where he was admitted and discharged. However, he still feels pain in his legs so he decided to come to the ER. Time Seen by Provider: 07/20/17 12:51 Chief Complaint (Nursing): Lower Extremity Problem/Injury History Per: Patient History/Exam Limitations: no limitations Onset/Duration Of Symptoms: Days Current Symptoms Are (Timing): Still Present Severity: Moderate Past Medical History Reviewed: Historical Data, Nursing Documentation, Vital Signs Vital Signs: Last Vital Signs Temp 98.3 F 07/20/17 12:35 Pulse 104 H 07/20/17 12:35 Resp 20 07/20/17 12:35 BP 155/85 H 07/20/17 12:35 Pulse Ox 94 L 07/20/17 16:58 - Medical History PMH: Arthritis, Cardia Arrhythmia, CHF, HTN Denies: Chronic Kidney Disease Surgical History: Pacemaker - [facility] Procedures INSERTION OF INFUSION DEV INTO SUP VENA CAVA, PERC APPROACH (06/27/17) RESPIRATORY VENTILATION, GREATER THAN 96 CONSECUTIVE HOURS (03/17/16) Family History: States: No Known Family Hx - Social History Hx Alcohol Use: No Hx Substance Use: No - Immunization History Hx Tetanus Toxoid Vaccination: Yes Hx Influenza Vaccination: No Hx Pneumococcal Vaccination: No Review Of Systems Except As Marked, All Systems Reviewed And Found Negative. Musculoskeletal: Positive for: Leg Pain Neurological: Negative for: Weakness, Numbness Physical Exam - Physical Exam Appears: Non-toxic, No Acute Distress Skin: Normal Color, Warm Head: Atraumatic, Normacephalic Eye(s): bilateral: Normal Inspection Nose: Normal Oral Mucosa: Moist Neck: Supple Chest: Symmetrical Cardiovascular: Rhythm Regular Respiratory: Normal Breath Sounds, No Accessory Muscle Use, No Rales, No Rhonchi , No Wheezing Extremity: Normal ROM, Tenderness (tenderness in bilateral legs), Swelling ( swelling in bilateral legs), Other (erythema in bilateral legs, blistering in bilateral legs(L>R)) Neurological/Psych: Oriented x3, Normal Speech, Normal Motor, Normal Sensation ED Course And Treatment - Laboratory Results Result Diagrams: 07/20/17 14:04 07/20/17 15:10 O2 Sat by Pulse Oximetry: 94 Pulse Ox Interpretation: Abnormal - Radiology CXR: Interpreted by Me, Viewed By Me CXR Interpretation: Yes: No Acute Disease Progress Note: Labs, CXR, and Duplex Scan ordered and negative for DVT. case was d/w who instructed to call medical front desk coordinator and asked to hold on to antibiotics for now. Patient was accepted to his service for an admission. Disposition - Disposition Disposition: HOSPITALIZED Disposition Time: 16:57 Condition: FAIR - Clinical Impression Clinical Impression: Cellulitis of both lower extremities - PA / DEVELOPMENT INTERN / Resident Statement MD/DO has reviewed & agrees with the documentation as recorded. - Scribe Statement The provider has reviewed the documentation as recorded by the Scribe Tian Reed Provider Attestation All medical record entries made by the Scribe were at my direction and personally dictated by me. I have reviewed the chart and agree that the record accurately reflects my personal performance of the history, physical exam, medical decision making, and the department course for this patient. I have also personally directed, reviewed, and agree with the discharge instructions and disposition. Decision To Admit - Pt Status Changed To: Hospital Disposition Of: Inpatient - Admit Certification Admit to Inpatient:: After my assessment, the patient will require hospitalization for at least two midnights. This is because of the severity of symptoms shown, intensity of services needed, and/or the medical risk in this patient being treated as an outpatient. - InPatient: Physician Admission Certification: I certify that this patient requires 2 or more midnights of care for the following reason:: Pt failed outpatient treatment. He will need more than 2 days of IV antibiotics. - . Bed Request Type: Regular Patient Diagnosis: Cellulitis of both lower extremities
[2017-07-20 15:35] LABS: ALB/GLOB RATIO 0.8 (1.0-2.1); ALBUMIN 3.6 g/dL (3.5-5.0); ALT/SGPT 26 U/L (21-72); AST/SGOT 34 U/L (17-59); BLOOD UREA NITROGEN 11 mg/dL (9-20); CALCIUM 8.4 mg/dl (8.6-10.4); GFR AFRICAN-AMERICAN > 60; GFR NON-AFRICAN AMERICAN > 60
[2017-07-20 15:44] LABS: CK-MB 1.12 ng/mL (0.0-3.38)
[2017-07-20 15:53] LABS: B-TYPE NATRIURETIC PEPTIDE 114 pg/mL (0-900)
--- NOTE | 2017-07-20 16:32 | RAD ---
PROCEDURE: CHEST RADIOGRAPH, 1 VIEW HISTORY: pre admission COMPARISON: 06/27/2017 FINDINGS: LUNGS: The lungs are well inflated and there is moderate pulmonary venous congestion. There is persistent haziness in the right lower lobe. PLEURA: No pneumothorax or pleural fluid seen. CARDIOVASCULAR: The heart remains enlarged. There is stable position of left-sided pacemaker. OSSEOUS STRUCTURES: No significant abnormalities. VISUALIZED UPPER ABDOMEN: Normal. OTHER FINDINGS: None. IMPRESSION: Haziness in the right lower lobe could represent atelectasis/fibrosis or pneumonia. Follow-up is advised. Persistent cardiomegaly and pulmonary venous congestion.
--- NOTE | 2017-07-20 18:05 | CP.PCM.HP ---
History of Present Illness - History of Present Illness History of Present Illness: PGY1 H+P for Dr. Ward Patient is a 67 year old male with PMHx Cardiac Arrthymia s/p ICD placement, hypertension, severe morbid obesity who presents to the hospital complaining of painful leg swelling. Patient states that he has been dealing with this for the past few weeks, including a hospitalization for 7 days at [facility] from 06/27/17-. The patient states he was given an antibiotic which did not help, so he decided to go to [facility], where he was admitted and discharged. He was unable to get his medications due to a problem with his health insurance, so he has not taken any of his medications for the last 3 days. Over these three days, his legs have gotten progressively more swollen. He states that he was able to walk three days ago but over this time, he now needs to use a rolling walker. He states he also needs to stop a lot more often because he becomes short of breath. He denies any other symptoms at this time. Denies fevers, chills, nausea, vomiting, diarrhea, constipation, chest pain, abdominal pain, headaches, blurred vision, numbness or tingling. PMHx: Unspecified cardiac arrthymia (unknown to patient why he received the AICD ), HTN, severe morbid obesity PSHx: AICD placement in 2006, battery changed in 2013, gastric bypass Allergies: NKDA Social: Former smoker quit 12 years ago. Used to smoke 2 ppd for about 30-35 years. Denies alcohol, drugs. Lives in a longterm at the moment. PMD: Dr. Ward Inventory Taker: Dr. Robins (AICD was checked in the beginning of 2018 and was working normally per patient) Home meds: Amlodipine 5 mg PO daily, Coreg 25 mg PO BID, Losartan 100 mg PO daily, Lasix 40 mg PO daily, Aspirin 81 mg PO daily, Nifedipine ER 60 mg PO daily, Digoxin 0.125 mg PO daily, Naproxen 500 mg PO BID Present on Admission - Present on Admission Any Indicators Present on Admission: No Review of Systems - Review of Systems All systems: reviewed and no additional remarkable complaints except (as per HPI ) Past Patient History - Past Medical History & Family History Past Medical History?: Yes - Past Social History Smoking Status: Former Smoker - CARDIAC Hx Cardia Arrhythmia: Yes Hx Congestive Heart Failure: Yes Hx Hypertension: Yes Hx Pacemaker: Yes - PULMONARY Hx Respiratory Disorders: No - NEUROLOGICAL Hx Neurological Disorder: Yes Hx Syncope: Yes - HEENT Hx HEENT Problems: No - RENAL Hx Chronic Kidney Disease: No - ENDOCRINE/METABOLIC Hx Endocrine Disorders: No - HEMATOLOGICAL/ONCOLOGICAL Hx Blood Disorders: No - INTEGUMENTARY Hx Dermatological Problems: Yes (B/L LE open blisters) - MUSCULOSKELETAL/RHEUMATOLOGICAL Hx Arthritis: Yes - GASTROINTESTINAL Hx Gastrointestinal Disorders: No - GENITOURINARY/GYNECOLOGICAL Hx Genitourinary Disorders: Yes (Frequent urination @ night) - PSYCHIATRIC Hx Substance Use: No - SURGICAL HISTORY Hx Surgeries: Yes Other/Comment: [facility] 2006 - ANESTHESIA Hx Anesthesia: Yes Hx Anesthesia Reactions: No Meds Allergies/Adverse Reactions: Allergies Allergy/AdvReac Type Severity Reaction Status Date / Time No Known Allergies Allergy Verified 07/20/17 12:38 Physical Exam - Constitutional Appears: Non-toxic, No Acute Distress - Head Exam Head Exam: ATRAUMATIC, NORMOCEPHALIC - Eye Exam Eye Exam: EOMI, Normal appearance Pupil Exam: NORMAL ACCOMODATION - ENT Exam ENT Exam: Mucous Membranes Moist - Respiratory Exam Respiratory Exam: Clear to Auscultation Bilateral, NORMAL BREATHING PATTERN. absent: Accessory Muscle Use, Rales, Rhonchi, Wheezes, Respiratory Distress - Cardiovascular Exam Cardiovascular Exam: REGULAR RHYTHM, +S1 - GI/Abdominal Exam GI & Abdominal Exam: Normal Bowel Sounds, Soft. absent: Distended, Firm, Guarding, Rigid, Tenderness Additional comments: morbidly obese - Extremities Exam Extremities exam: Positive for: calf tenderness, pedal edema (3+ edema up to knees b/l), pedal pulses present - Neurological Exam Neurological exam: Alert, Oriented x3 - Psychiatric Exam Psychiatric exam: Normal Affect, Normal Mood - Skin Skin Exam: Dry, Warm Additional comments: erythema at distal portion of legs b/l, blistering on legs b/l - (L>R) Results - Vital Signs Recent Vital Signs: Last Vital Signs Temp 98.3 F 07/20/17 12:35 Pulse 104 H 07/20/17 12:35 Resp 20 07/20/17 12:35 BP 155/85 H 07/20/17 12:35 Pulse Ox 94 L 07/20/17 16:58 - Labs Result Diagrams: 07/20/17 14:04 07/20/17 15:10 Labs: Laboratory Results - last 24 hr 07/20/17 07/20/17 07/20/17 14:04 14:04 15:10 WBC 7.2 RBC 4.21 L Hgb 13.0 Hct 38.2 MCV 90.6 MCH 30.9 MCHC 34.2 RDW 14.3 Plt Count 206 D MPV 8.4 Neut % (Auto) 64.7 Lymph % (Auto) 16.6 L [place] % (Auto) 13.4 H Eos % (Auto) 4.3 H Baso % (Auto) 1.0 Neut # (Auto) 4.6 Lymph # (Auto) 1.2 [place] # (Auto) 1.0 H Eos # (Auto) 0.3 Baso # (Auto) 0.1 PT 13.7 H INR 1.2 APTT 29 Sodium 138 Potassium 4.5 Chloride 102 Carbon Dioxide 21 L Anion Gap 20 BUN 11 Creatinine 0.7 L Est GFR ( Amer) > 60 Est GFR (Non-Af Amer) > 60 Random Glucose 90 Calcium 8.4 L Total Bilirubin 1.0 AST 34 ALT 26 Alkaline Phosphatase 66 Total Creatine Kinase 104 CK-MB (Mass) 1.12 NT-Pro-B Natriuret Pep 114 Total Protein 8.0 Albumin 3.6 Globulin 4.4 H Albumin/Globulin Ratio 0.8 L Assessment & Plan - Assessment and Plan (Free Text) Plan: 1. Leg swelling Likely due to venous insufficiency CXR 07/20/17 - Haziness in the right lower lobe could represent atelectasis/ fibrosis or pneumonia. Follow-up is advised. Persistent cardiomegaly and pulmonary venous congestion. Pro-BNP 114 Lower extremity duplex 07/20: No DVTs b/l Naproxen 550mg BID prn for pain Lasix 60 mg IV Q12 x2 2. History of Hypertension Well controlled during admission Resume home Norvasc 5 mg PO daily Resume home Coreg 25 mg PO BID Resume home Losartan 100 mg PO daily Resume home Nifedipine ER 60 mg PO daily 3. History of AICD Per patient, it was checked by cardiology in beginning of 2017 and is working properly Resume home digoxin 0.125 mg PO daily Resume home Aspirin 81 mg PO daily 4. Insomnia Temazepam 30mg PO HS 5. Prophylactic Measure Heart Healthy Diet Heparin 5000 units SC Q8 Protonix 40 mg PO daily Case Discussed With Dr. Sylvia Kahn Kyle PGY1
[2017-07-20] MEDS: Naproxen 550 mg Tab PO PRN (21:35)
[2017-07-21] MEDS: Albuterol-Ipratrop 3 mg / 0.5 (3 ml) UD INH SCH ×4 (01:41→20:02)
[2017-07-21 08:36] LABS: BASO % 0.8 % (0.0-2.0); EOS # 0.3 K/uL (0.0-0.7); EOS % 4.9 % (0.0-4.0); HEMOGLOBIN 13.4 g/dL (12.0-18.0); LYMPH # 1.3 K/uL (1.0-4.3); MEAN CELL VOLUME 90.8 fL (80.0-94.0); MEAN CORPUSCULAR HEMOGLOBIN 30.8 pg (27.0-31.0); MEAN CORPUSCULAR HGB CONC 33.9 g/dL (33.0-37.0); MEAN PLATELET VOLUME 8.4 fL (7.2-11.7); MONO # 0.7 K/uL (0.0-0.8); MONO % 11.8 % (0.0-10.0); NEUT # 3.6 K/uL (1.8-7.0); NEUT % 60.5 % (50.0-75.0); NRBC % 0.1 % (0.0-2.0); RBC 4.35 Mil/uL (4.40-5.90); RED CELL DISTRIBUTION WIDTH 14.3 % (11.5-14.5)
[2017-07-21 08:43] LABS: ALB/GLOB RATIO 0.9 (1.0-2.1); ALBUMIN 3.8 g/dL (3.5-5.0); ALT/SGPT 22 U/L (21-72); AST/SGOT 22 U/L (17-59); BLOOD UREA NITROGEN 9 mg/dL (9-20); CALCIUM 8.1 mg/dl (8.6-10.4); GFR AFRICAN-AMERICAN > 60; GFR NON-AFRICAN AMERICAN > 60
[2017-07-21] MEDS: Pantoprazole 40 mg EC Tab PO SCH (10:21)
[2017-07-21] MEDS: NIFEdipine 60 mg ER Tab PO SCH (10:21)
--- NOTE | 2017-07-21 11:22 | VASCLAB ---
PROCEDURE: Bilateral Lower Extremity Venous Duplex Exam. HISTORY: LE edema and pain PRIORS: 06/29/2017, normal. TECHNIQUE: Bilateral common femoral, femoral, popliteal and posterior tibial, peroneal and great saphenous veins were evaluated. Flow was assessed with color Doppler, compressibility, assessment of phasic flow and augmentation response. Report prepared by YANY Srivastava FINDINGS: RIGHT: 1. Common Femoral Vein: 1.1. Compressibility - Fully compressible: Thrombus - None : Flow - Phasic: Augmentation -Normal: Reflux - None. 2. Femoral Vein: 2.1. Compressibility - Fully compressible: Thrombus - None : Flow - Phasic: Augmentation -Normal: Reflux - None. 3. Popliteal Vein: 3.1. Compressibility - Fully compressible: Thrombus - None : Flow - Phasic: Augmentation -Normal: Reflux - None. 4. Great Saphenous Vein: 4.1. Compressibility - Fully compressible: Thrombus - None: Flow - Phasic: Augmentation - Normal: Reflux - None. LEFT: 1. Common Femoral Vein: 1.1. Compressibility - Fully compressible: Thrombus - None: Flow - Phasic: Augmentation -Normal: Reflux - None. 2. Femoral Vein: 2.1. Compressibility - Fully compressible: Thrombus - None: Flow - Phasic: Augmentation -Normal: Reflux - None. 3. Popliteal Vein: 3.1. Compressibility - Fully compressible: Thrombus - None : Flow - Phasic: Augmentation -Normal: Reflux - None. 4. Great Saphenous Vein: 4.1. Compressibility - Fully compressible: Thrombus - None: Flow - Phasic: Augmentation - Normal: Reflux - None. OTHER FINDINGS: Bilateral posterior tibial and peroneal veins could not be visualized, due to swelling. IMPRESSION: Right: No evidence of deep or superficial vein thrombosis of the right lower extremity, for the imaged veins. Normal valve function noted of the right side. Left: No evidence of deep or superficial vein thrombosis of the left lower extremity , for the imaged veins. Normal valve function noted of the left side.
--- NOTE | 2017-07-21 14:54 | CP.PCM.PN ---
Subjective - Date & Time of Evaluation Date of Evaluation: 07/21/17 Time of Evaluation: 14:52 - Subjective Subjective: PGY1 Medicine Note for Dr. Ward Patient seen and examined at bedside the morning. Patient states he was peeing a lot throughout the night. He reports moderate pain in his legs bilaterally but states he has noticed a small decrease in the size of his legs. He has no other complaints at this time. Denies fevers, chills, nausea, vomiting, diarrhea , constipation, chest pain, abdominal pain, headaches, blurred vision, numbness or tingling. Objective - Vital Signs/Intake and Output Vital Signs (last 24 hours): Temp Pulse Resp BP Pulse Ox 98.5 F 74 20 128/80 94 L 07/21/17 11:48 07/21/17 11:48 07/21/17 11:48 07/21/17 11:48 07/21/17 11:48 Intake and Output: 07/21/17 07/21/17 06:59 18:59 Intake Total 640 Balance 640 - Medications Medications: Current Medications Albuterol/Ipratropium (Duoneb 3 Mg/0.5 Mg (3 Ml) Ud) 3 ml INH RQ6 [facility] Last Admin: 07/21/17 13:18 Dose: 3 ml Amlodipine Besylate (Norvasc) 5 mg PO DAILY [facility] Last Admin: 07/21/17 10:21 Dose: 5 mg Aspirin (Aspirin Chewable) 81 mg PO DAILY [facility] Last Admin: 07/21/17 10:19 Dose: 81 mg Carvedilol (Coreg) 25 mg PO BID [facility] Last Admin: 07/21/17 10:19 Dose: 25 mg Digoxin (Digoxin) 0.125 mg PO DAILY@1800 [facility] Furosemide (Lasix) 60 mg IVP Q12 [facility] Last Admin: 07/21/17 10:21 Dose: 60 mg Heparin Sodium (Porcine) (Heparin) 5,000 units SC Q8 [facility] Last Admin: 07/21/17 14:20 Dose: 5,000 units Losartan Potassium (Cozaar) 100 mg PO DAILY [facility] Last Admin: 07/21/17 10:19 Dose: 100 mg Naproxen (Anaprox Ds) 550 mg PO BID PRN PRN Reason: Pain, Mild (1-3) Last Admin: 07/20/17 21:35 Dose: 550 mg Nifedipine (Procardia Xl) 60 mg PO DAILY [facility] Last Admin: 07/21/17 10:21 Dose: 60 mg Pantoprazole Sodium (Protonix Ec Tab) 40 mg PO DAILY [facility] Last Admin: 07/21/17 10:21 Dose: 40 mg Temazepam (Restoril) 30 mg PO HS PRN PRN Reason: Insomnia - Labs Labs: 07/21/17 08:22 07/21/17 08:22 PT 13.7 SECONDS (9.7-12.2) H 07/20/17 14:04 INR 1.2 07/20/17 14:04 APTT 29 SECONDS (21-34) 07/20/17 14:04 - Constitutional Appears: Non-toxic, No Acute Distress - Head Exam Head Exam: ATRAUMATIC, NORMOCEPHALIC - Eye Exam Eye Exam: Normal appearance - ENT Exam ENT Exam: Mucous Membranes Moist - Respiratory Exam Respiratory Exam: Clear to Ausculation Bilateral, NORMAL BREATHING PATTERN. absent: Accessory Muscle Use, Rales, Rhonchi, Wheezes, Respiratory Distress - Cardiovascular Exam Cardiovascular Exam: REGULAR RHYTHM, +S1 - GI/Abdominal Exam GI & Abdominal Exam: Soft, Normal Bowel Sounds. absent: Distended, Firm, Guarding, Rigid, Tenderness Additional comments: morbidly obese - Extremities Exam Extremities Exam: Calf Tenderness, Pedal Edema (3+ pitting edema up to knees b/l ) - Neurological Exam Neurological Exam: Alert, Awake, Oriented x3 - Psychiatric Exam Psychiatric exam: Normal Affect, Normal Mood - Skin Skin Exam: Dry, Warm Additional comments: erythema at distal portion of legs b/l, blistering on legs b/l - (L>R) Assessment and Plan - Assessment and Plan (Free Text) Plan: 1. Leg swelling Stable/mild improvement Likely due to venous insufficiency CXR 07/20/17 - Haziness in the right lower lobe could represent atelectasis/ fibrosis or pneumonia. Follow-up is advised. Persistent cardiomegaly and pulmonary venous congestion. Pro-BNP 114 Lower extremity duplex 07/20: No DVTs b/l Naproxen 550mg BID prn for pain Lasix 60 mg IV Q12 x2 continue to monitor 2. History of Hypertension Well controlled during admission Resume home Norvasc 5 mg PO daily Resume home Coreg 25 mg PO BID Resume home Losartan 100 mg PO daily Resume home Nifedipine ER 60 mg PO daily 3. History of AICD Per patient, it was checked by cardiology in beginning of 2018 and is working properly Resume home digoxin 0.125 mg PO daily Resume home Aspirin 81 mg PO daily 4. Insomnia Temazepam 30mg PO HS 5. Prophylactic Measure Heart Healthy Diet Heparin 5000 units SC Q8 Protonix 40 mg PO daily DISPO: Continue to monitor lower extremity edema. As edema improves, discharge home. Patient currently living in snf. Case Discussed With Dr. Sylvia Kahn Kyle PGY1
[2017-07-21] MEDS: Digoxin 125 mcg (0.125 mg) Tab PO SCH (17:15)
[2017-07-21] MEDS: Naproxen 550 mg Tab PO PRN (18:14)
[2017-07-22] MEDS: Albuterol-Ipratrop 3 mg / 0.5 (3 ml) UD INH SCH ×4 (02:49→19:46)
[2017-07-22 08:38] LABS: BASO % 0.7 % (0.0-2.0); EOS # 0.3 K/uL (0.0-0.7); EOS % 6.3 % (0.0-4.0); HEMOGLOBIN 12.9 g/dL (12.0-18.0); LYMPH # 1.1 K/uL (1.0-4.3); LYMPH % 22.3 % (20.0-40.0); MEAN CELL VOLUME 90.6 fL (80.0-94.0); MEAN CORPUSCULAR HEMOGLOBIN 31.1 pg (27.0-31.0); MEAN CORPUSCULAR HGB CONC 34.3 g/dL (33.0-37.0); MEAN PLATELET VOLUME 8.6 fL (7.2-11.7); MONO # 0.8 K/uL (0.0-0.8); MONO % 15.7 % (0.0-10.0); NEUT # 2.7 K/uL (1.8-7.0); RBC 4.16 Mil/uL (4.40-5.90); RED CELL DISTRIBUTION WIDTH 14.4 % (11.5-14.5); WHITE BLOOD COUNT 4.9 K/uL (4.8-10.8)
[2017-07-22 09:00] LABS: ALB/GLOB RATIO 0.9 (1.0-2.1); ALBUMIN 3.5 g/dL (3.5-5.0); ALT/SGPT 30 U/L (21-72); AST/SGOT 28 U/L (17-59); BLOOD UREA NITROGEN 11 mg/dL (9-20); CALCIUM 8.3 mg/dl (8.6-10.4); GFR AFRICAN-AMERICAN > 60; GFR NON-AFRICAN AMERICAN > 60
[2017-07-22] MEDS ORDERED: Influenza Vaccine 60 mcg/0.5 mL SYR (4YR UP) IM ONE (10:00)
[2017-07-22] MEDS ORDERED: Pneumococcal 23-Valent Vaccine IM ONE ×2 (10:00)
[2017-07-22] MEDS: NIFEdipine 60 mg ER Tab PO SCH (10:30)
[2017-07-22] MEDS: Pantoprazole 40 mg EC Tab PO SCH (10:30)
[2017-07-22] MEDS: Naproxen 550 mg Tab PO PRN ×2 (10:47→17:51)
--- NOTE | 2017-07-22 17:28 | CP.PCM.PN ---
Subjective - Date & Time of Evaluation Date of Evaluation: 07/22/17 Time of Evaluation: 17:27 - Subjective Subjective: PGY2 Medicine Note for Dr. Ward Patient was seen and examined at bedside this AM; states swelling/pain in legs has gotten slightly better; was seen walking around the unit today; denies all other symptoms of MARTINES, CP, SOb, abdominal pain, N/V/D, dysuria/freq/urg. Objective - Vital Signs/Intake and Output Vital Signs (last 24 hours): Temp Pulse Resp BP Pulse Ox 97.9 F 70 20 117/73 95 07/22/17 07:46 07/22/17 07:46 07/22/17 07:46 07/22/17 10:30 07/22/17 07:46 Intake and Output: 07/22/17 07/22/17 06:59 18:59 Intake Total 300 500 Output Total 1000 Balance -700 500 - Medications Medications: Current Medications Albuterol/Ipratropium (Duoneb 3 Mg/0.5 Mg (3 Ml) Ud) 3 ml INH RQ6 [facility] Last Admin: 07/22/17 13:38 Dose: 3 ml Amlodipine Besylate (Norvasc) 5 mg PO DAILY [facility] Last Admin: 07/22/17 10:30 Dose: 5 mg Aspirin (Aspirin Chewable) 81 mg PO DAILY [facility] Last Admin: 07/22/17 10:29 Dose: 81 mg Azithromycin (Zithromax) 500 mg PO STAT [facility] Stop: 07/22/17 17:24 Azithromycin (Zithromax) 250 mg PO DAILY [facility] Stop: 07/26/17 23:59 Carvedilol (Coreg) 25 mg PO BID [facility] Last Admin: 07/22/17 10:29 Dose: 25 mg Digoxin (Digoxin) 0.125 mg PO DAILY@1800 [facility] Last Admin: 07/21/17 17:15 Dose: 0.125 mg Furosemide (Lasix) 60 mg IVP Q12 [facility] Last Admin: 07/22/17 10:30 Dose: 60 mg Heparin Sodium (Porcine) (Heparin) 5,000 units SC Q8 [facility] Last Admin: 07/22/17 13:35 Dose: 5,000 units Losartan Potassium (Cozaar) 100 mg PO DAILY [facility] Last Admin: 07/22/17 10:29 Dose: 100 mg Naproxen (Anaprox Ds) 550 mg PO BID PRN PRN Reason: Pain, Mild (1-3) Last Admin: 07/22/17 10:47 Dose: 550 mg Nifedipine (Procardia Xl) 60 mg PO DAILY [facility] Last Admin: 07/22/17 10:30 Dose: 60 mg Pantoprazole Sodium (Protonix Ec Tab) 40 mg PO DAILY [facility] Last Admin: 07/22/17 10:30 Dose: 40 mg Temazepam (Restoril) 30 mg PO HS PRN PRN Reason: Insomnia - Labs Labs: 07/22/17 08:26 07/22/17 08:26 PT 13.7 SECONDS (9.7-12.2) H 07/20/17 14:04 INR 1.2 07/20/17 14:04 APTT 29 SECONDS (21-34) 07/20/17 14:04 - Constitutional Appears: Well (morbidly obese ) - Head Exam Head Exam: ATRAUMATIC - Eye Exam Eye Exam: EOMI, Normal appearance, PERRL - ENT Exam ENT Exam: Mucous Membranes Moist - Neck Exam Neck Exam: Full ROM. absent: Lymphadenopathy - Respiratory Exam Respiratory Exam: Clear to Ausculation Bilateral, NORMAL BREATHING PATTERN. absent: Accessory Muscle Use, Chest Wall Tenderness, Decreased Breath Sounds, Rales, Rhonchi, Wheezes, Respiratory Distress, Stridor - Cardiovascular Exam Cardiovascular Exam: REGULAR RHYTHM, +S1, +S2 - GI/Abdominal Exam GI & Abdominal Exam: Soft, Normal Bowel Sounds. absent: Tenderness - Extremities Exam Extremities Exam: Calf Tenderness (large red b/l legs with chronic venous stasis changes no open wounds no pus ) - Back Exam Back Exam: NORMAL INSPECTION. absent: CVA tenderness (L), CVA tenderness (R) - Neurological Exam Neurological Exam: Alert, Awake, Oriented x3 - Psychiatric Exam Psychiatric exam: Normal Affect - Skin Skin Exam: Warm Assessment and Plan - Assessment and Plan (Free Text) Assessment: Leg swelling 2/2 to chronic venous stasis Stable/mild improvement Likely due to venous insufficiency CXR 07/20/17 - Haziness in the right lower lobe could represent atelectasis/ fibrosis or pneumonia. Follow-up is advised. Persistent cardiomegaly and pulmonary venous congestion. Pro-BNP 114 Lower extremity duplex 07/20: No DVTs b/l Naproxen 550mg BID prn for pain Lasix 60 mg IV Q12 x2 will add compression stockings continue to monitor History of Hypertension Well controlled during admission Resume home Norvasc 5 mg PO daily Resume home Coreg 25 mg PO BID Resume home Losartan 100 mg PO daily Resume home Nifedipine ER 60 mg PO daily History of AICD Per patient, it was checked by cardiology in beginning of 2018 and is working properly Resume home digoxin 0.125 mg PO daily Resume home Aspirin 81 mg PO daily Insomnia Temazepam 30mg PO HS 5. Prophylactic Measure Heart Healthy Diet Heparin 5000 units SC Q8 Protonix 40 mg PO daily DISPO: Continue to monitor lower extremity edema. As edema improves, discharge home. Patient currently living in half-way. will add compression stocking to be used; patient to elevate legs will also add z-pack for congestoin/possible URI Case Discussed With Dr. Ward
[2017-07-22] MEDS: Digoxin 125 mcg (0.125 mg) Tab PO SCH (17:46)
[2017-07-23] MEDS: Albuterol-Ipratrop 3 mg / 0.5 (3 ml) UD INH SCH ×4 (02:40→19:09)
[2017-07-23 08:55] LABS: BASO % 0.7 % (0.0-2.0); EOS # 0.4 K/uL (0.0-0.7); EOS % 7.1 % (0.0-4.0); HEMOGLOBIN 13.2 g/dL (12.0-18.0); LYMPH # 1.4 K/uL (1.0-4.3); LYMPH % 25.5 % (20.0-40.0); MEAN CELL VOLUME 90.6 fL (80.0-94.0); MEAN CORPUSCULAR HEMOGLOBIN 30.8 pg (27.0-31.0); MEAN PLATELET VOLUME 8.6 fL (7.2-11.7); MONO # 0.7 K/uL (0.0-0.8); MONO % 13.8 % (0.0-10.0); NEUT # 2.8 K/uL (1.8-7.0); NEUT % 52.9 % (50.0-75.0); NRBC % 0.3 % (0.0-2.0); RBC 4.28 Mil/uL (4.40-5.90); RED CELL DISTRIBUTION WIDTH 14.1 % (11.5-14.5); WHITE BLOOD COUNT 5.4 K/uL (4.8-10.8)
[2017-07-23 09:15] LABS: ALB/GLOB RATIO 0.9 (1.0-2.1); ALBUMIN 3.6 g/dL (3.5-5.0); ALT/SGPT 32 U/L (21-72); AST/SGOT 24 U/L (17-59); BLOOD UREA NITROGEN 15 mg/dL (9-20); CALCIUM 8.2 mg/dl (8.6-10.4); GFR AFRICAN-AMERICAN > 60; GFR NON-AFRICAN AMERICAN > 60
[2017-07-23] MEDS: NIFEdipine 60 mg ER Tab PO SCH (10:16)
[2017-07-23] MEDS: Pantoprazole 40 mg EC Tab PO SCH (10:16)
--- NOTE | 2017-07-23 14:01 | CP.PCM.PN ---
Subjective - Date & Time of Evaluation Date of Evaluation: 07/23/17 Time of Evaluation: 14:06 - Subjective Subjective: PGY2 Note for Dr. Ward The patient was seen and examined at bedside this AM; denies any complaints except for leg pain that is not going away; the patient is not keeping his legs up and elevated and remains sitting in bed with legs dangling which he was told repeatedly not to do. Also is not wearing stockings that were ordered. Denies all other symptoms. Objective - Vital Signs/Intake and Output Vital Signs (last 24 hours): Temp Pulse Resp BP Pulse Ox 97.5 F L 73 20 155/75 H 97 07/23/17 08:08 07/23/17 08:08 07/23/17 08:08 07/23/17 10:17 07/23/17 08:08 Intake and Output: 07/23/17 07/23/17 06:59 18:59 Intake Total 400 Balance 400 - Medications Medications: Current Medications Albuterol/Ipratropium (Duoneb 3 Mg/0.5 Mg (3 Ml) Ud) 3 ml INH RQ6 [facility] Last Admin: 07/23/17 13:59 Dose: 3 ml Amlodipine Besylate (Norvasc) 5 mg PO DAILY [facility] Last Admin: 07/23/17 10:17 Dose: 5 mg Aspirin (Aspirin Chewable) 81 mg PO DAILY [facility] Last Admin: 07/23/17 10:16 Dose: 81 mg Azithromycin (Zithromax) 250 mg PO DAILY [facility] Stop: 07/26/17 23:59 Last Admin: 07/23/17 10:16 Dose: 250 mg Carvedilol (Coreg) 25 mg PO BID [facility] Last Admin: 07/23/17 10:16 Dose: 25 mg Digoxin (Digoxin) 0.125 mg PO DAILY@1800 [facility] Last Admin: 07/22/17 17:46 Dose: 0.125 mg Furosemide (Lasix) 60 mg IVP Q12 [facility] Last Admin: 07/23/17 10:17 Dose: 60 mg Heparin Sodium (Porcine) (Heparin) 5,000 units SC Q8 [facility] Last Admin: 07/23/17 13:53 Dose: 5,000 units Losartan Potassium (Cozaar) 100 mg PO DAILY [facility] Last Admin: 07/23/17 10:17 Dose: 100 mg Naproxen (Anaprox Ds) 550 mg PO BID PRN PRN Reason: Pain, Mild (1-3) Last Admin: 07/22/17 17:51 Dose: 550 mg Nifedipine (Procardia Xl) 60 mg PO DAILY [facility] Last Admin: 07/23/17 10:16 Dose: 60 mg Pantoprazole Sodium (Protonix Ec Tab) 40 mg PO DAILY [facility] Last Admin: 07/23/17 10:16 Dose: 40 mg Temazepam (Restoril) 30 mg PO HS PRN PRN Reason: Insomnia - Labs Labs: 07/23/17 08:34 07/23/17 08:34 PT 13.7 SECONDS (9.7-12.2) H 07/20/17 14:04 INR 1.2 07/20/17 14:04 APTT 29 SECONDS (21-34) 07/20/17 14:04 Assessment and Plan - Assessment and Plan (Free Text) Assessment: Appears: Well (morbidly obese ) - Head Exam Head Exam: ATRAUMATIC - Eye Exam Eye Exam: EOMI, Normal appearance, PERRL - ENT Exam ENT Exam: Mucous Membranes Moist - Neck Exam Neck Exam: Full ROM. absent: Lymphadenopathy - Respiratory Exam Respiratory Exam: Clear to Ausculation Bilateral, NORMAL BREATHING PATTERN. absent: Accessory Muscle Use, Chest Wall Tenderness, Decreased Breath Sounds, Rales, Rhonchi, Wheezes, Respiratory Distress, Stridor - Cardiovascular Exam Cardiovascular Exam: REGULAR RHYTHM, +S1, +S2 - GI/Abdominal Exam GI & Abdominal Exam: Soft, Normal Bowel Sounds. absent: Tenderness - Extremities Exam Extremities Exam: Calf Tenderness (large red b/l legs with chronic venous stasis changes no open wounds no pus ) - Back Exam Back Exam: NORMAL INSPECTION. absent: CVA tenderness (L), CVA tenderness (R) - Neurological Exam Neurological Exam: Alert, Awake, Oriented x3 - Psychiatric Exam Psychiatric exam: Normal Affect - Skin Skin Exam: Warm Assessment and Plan - Assessment and Plan (Free Text) Assessment: Leg swelling 2/2 to chronic venous stasis Stable/mild improvement Likely due to venous insufficiency CXR 07/20/17 - Haziness in the right lower lobe could represent atelectasis/ fibrosis or pneumonia. Follow-up is advised. Persistent cardiomegaly and pulmonary venous congestion. Pro-BNP 114 Lower extremity duplex 07/20: No DVTs b/l Naproxen 550mg BID prn for pain Lasix 60 mg IV Q12 x2 will add compression stockings continue to monitor History of Hypertension Well controlled during admission Resume home Norvasc 5 mg PO daily Resume home Coreg 25 mg PO BID Resume home Losartan 100 mg PO daily Resume home Nifedipine ER 60 mg PO daily History of AICD Per patient, it was checked by cardiology in beginning of 2018 and is working properly Resume home digoxin 0.125 mg PO daily Resume home Aspirin 81 mg PO daily Insomnia Temazepam 30mg PO HS 5. Prophylactic Measure Heart Healthy Diet Heparin 5000 units SC Q8 Protonix 40 mg PO daily DISPO: Continue to monitor lower extremity edema. As edema improves, discharge home. Patient currently living in [facility]. will add compression stocking to be used; patient to elevate legs will also add z-pack for congestoin/possible URI; will end on monday Case Discussed With Dr. Ward
[2017-07-23] MEDS: Digoxin 125 mcg (0.125 mg) Tab PO SCH (17:28)
[2017-07-23] MEDS: Naproxen 550 mg Tab PO PRN (17:29)
[2017-07-24] MEDS: Albuterol-Ipratrop 3 mg / 0.5 (3 ml) UD INH SCH ×4 (02:33→19:15)
[2017-07-24 07:17] LABS: BASO # 0.1 K/uL (0.0-0.2); EOS # 0.4 K/uL (0.0-0.7); EOS % 7.1 % (0.0-4.0); HEMOGLOBIN 13.2 g/dL (12.0-18.0); LYMPH # 1.7 K/uL (1.0-4.3); LYMPH % 29.2 % (20.0-40.0); MEAN CELL VOLUME 90.9 fL (80.0-94.0); MEAN CORPUSCULAR HEMOGLOBIN 30.6 pg (27.0-31.0); MEAN CORPUSCULAR HGB CONC 33.7 g/dL (33.0-37.0); MONO # 0.7 K/uL (0.0-0.8); MONO % 11.3 % (0.0-10.0); NEUT % 51.4 % (50.0-75.0); RBC 4.3 Mil/uL (4.40-5.90); RED CELL DISTRIBUTION WIDTH 14.3 % (11.5-14.5); WHITE BLOOD COUNT 5.9 K/uL (4.8-10.8)
[2017-07-24 07:58] LABS: ALB/GLOB RATIO 0.9 (1.0-2.1); ALBUMIN 3.5 g/dL (3.5-5.0); ALT/SGPT 26 U/L (21-72); AST/SGOT 26 U/L (17-59); BLOOD UREA NITROGEN 15 mg/dL (9-20); CALCIUM 8.1 mg/dl (8.6-10.4); GFR AFRICAN-AMERICAN > 60; GFR NON-AFRICAN AMERICAN > 60
[2017-07-24] MEDS: Pantoprazole 40 mg EC Tab PO SCH (10:55)
[2017-07-24] MEDS: NIFEdipine 60 mg ER Tab PO SCH (10:59)
--- NOTE | 2017-07-24 16:48 | CP.PCM.PN ---
Subjective - Date & Time of Evaluation Date of Evaluation: 07/24/17 Time of Evaluation: 09:10 - Subjective Subjective: PGY1 Medicine Note for Dr. Ward Patient seen and examined at bedside this morning. Patient states he had a good weekend and is feeling slightly better. He states he still has pain in his legs. He agrees that the edema has decreased slightly but he states he is struggling with walking due to the pain. He has no other complaints at this time reporting his breathing is improving everyday. He is not wearing compression stocking that were order over the weekend. He states that he never received them. Denies fevers, chills, nausea, vomiting, diarrhea, constipation, chest pain, abdominal pain, headaches, blurred vision, numbness or tingling. Objective - Vital Signs/Intake and Output Vital Signs (last 24 hours): Temp Pulse Resp BP Pulse Ox 97.8 F 72 20 126/78 95 07/24/17 07:54 07/24/17 07:54 07/24/17 07:54 07/24/17 11:02 07/24/17 07:54 Intake and Output: 07/24/17 07/24/17 06:59 18:59 Intake Total 400 600 Output Total 950 Balance 400 -350 - Medications Medications: Current Medications Albuterol/Ipratropium (Duoneb 3 Mg/0.5 Mg (3 Ml) Ud) 3 ml INH RQ6 [facility] Last Admin: 07/24/17 13:37 Dose: 3 ml Amlodipine Besylate (Norvasc) 5 mg PO DAILY [facility] Last Admin: 07/24/17 10:54 Dose: 5 mg Aspirin (Aspirin Chewable) 81 mg PO DAILY [facility] Last Admin: 07/24/17 10:55 Dose: 81 mg Azithromycin (Zithromax) 250 mg PO DAILY [facility] Stop: 07/26/17 23:59 Last Admin: 07/24/17 10:55 Dose: 250 mg Carvedilol (Coreg) 25 mg PO BID [facility] Last Admin: 07/24/17 11:02 Dose: Not Given Digoxin (Digoxin) 0.125 mg PO DAILY@1800 [facility] Last Admin: 07/23/17 17:28 Dose: 0.125 mg Furosemide (Lasix) 60 mg IVP Q12 [facility] Last Admin: 07/24/17 11:01 Dose: 60 mg Heparin Sodium (Porcine) (Heparin) 5,000 units SC Q8 [facility] Last Admin: 07/24/17 05:35 Dose: 5,000 units Losartan Potassium (Cozaar) 100 mg PO DAILY [facility] Last Admin: 07/24/17 11:02 Dose: Not Given Naproxen (Anaprox Ds) 550 mg PO BID PRN PRN Reason: Pain, Mild (1-3) Last Admin: 07/23/17 17:29 Dose: 550 mg Nifedipine (Procardia Xl) 60 mg PO DAILY [facility] Last Admin: 07/24/17 10:59 Dose: Not Given Pantoprazole Sodium (Protonix Ec Tab) 40 mg PO DAILY [facility] Last Admin: 07/24/17 10:55 Dose: 40 mg Temazepam (Restoril) 30 mg PO HS PRN PRN Reason: Insomnia - Labs Labs: 07/24/17 07:06 07/24/17 07:06 PT 13.7 SECONDS (9.7-12.2) H 07/20/17 14:04 INR 1.2 07/20/17 14:04 APTT 29 SECONDS (21-34) 07/20/17 14:04 - Constitutional Appears: Well (morbidly obese), Non-toxic, No Acute Distress - Head Exam Head Exam: ATRAUMATIC, NORMOCEPHALIC - Eye Exam Eye Exam: EOMI, Normal appearance, PERRL - ENT Exam ENT Exam: Mucous Membranes Moist - Respiratory Exam Respiratory Exam: Decreased Breath Sounds (mostly like due to body habitus), Clear to Ausculation Bilateral, NORMAL BREATHING PATTERN. absent: Accessory Muscle Use, Rales, Rhonchi, Wheezes, Respiratory Distress - Cardiovascular Exam Cardiovascular Exam: REGULAR RHYTHM, +S1, +S2 - GI/Abdominal Exam GI & Abdominal Exam: Soft, Normal Bowel Sounds. absent: Distended (morbidly obese), Firm, Guarding, Rigid, Tenderness - Extremities Exam Extremities Exam: Calf Tenderness (erythematous with chronic venous stasis changes. No open wounds or blisters.), Pedal Edema (2+ up to knees b/l) - Neurological Exam Neurological Exam: Alert, Awake - Psychiatric Exam Psychiatric exam: Normal Affect, Normal Mood - Skin Skin Exam: Dry, Warm Assessment and Plan - Assessment and Plan (Free Text) Plan: Leg swelling 2/2 to chronic venous stasis Stable/mild improvement Likely due to venous insufficiency CXR 07/20/17 - Haziness in the right lower lobe could represent atelectasis/ fibrosis or pneumonia. Follow-up is advised. Persistent cardiomegaly and pulmonary venous congestion. Pro-BNP 114 Lower extremity duplex 07/20: No DVTs b/l Naproxen 550mg BID prn for pain Lasix 60 mg IV Q12 x2 Started Silvadene cream TOP BID to affected areas Unna boots Instructed patient he needs to wear compression stockings and to keep his legs elevated. Everytime the resident has walked into the room to examine the patient , he is still no the side of the bed with his feet on the ground. He was told this is not good and will only cause the leg swelling to continue. continue to monitor URI Patient started on Z-Antonio over weekend - will end on Monday History of Hypertension Well controlled during admission Resume home Norvasc 5 mg PO daily Resume home Coreg 25 mg PO BID Resume home Losartan 100 mg PO daily [facility] home Nifedipine ER 60 mg PO daily History of AICD Per patient, it was checked by cardiology in beginning of 2017 and is working properly Resume home digoxin 0.125 mg PO daily Resume home Aspirin 81 mg PO daily Insomnia Temazepam 30mg PO HS Prophylactic Measure Heart Healthy Diet Heparin 5000 units SC Q8 Protonix 40 mg PO daily DISPO: Continue to monitor lower extremity edema. As edema improves, discharge to [facility] for conditioning. Dr. Ward called and spoke to marybel as patient was recently admitted at this facility. Case Discussed With Dr. Sylvia Kahn Kyle PGY1
[2017-07-24] MEDS: Digoxin 125 mcg (0.125 mg) Tab PO SCH (17:36)
[2017-07-24] MEDS: Naproxen 550 mg Tab PO PRN (17:38)
[2017-07-25] MEDS: Albuterol-Ipratrop 3 mg / 0.5 (3 ml) UD INH SCH ×3 (01:30→14:14)
[2017-07-25 07:22] VITALS: O2SAT 95
[2017-07-25 07:52] LABS: ALB/GLOB RATIO 0.9 (1.0-2.1); ALBUMIN 3.9 g/dL (3.5-5.0); ALT/SGPT 33 U/L (21-72); AST/SGOT 30 U/L (17-59); BLOOD UREA NITROGEN 17 mg/dL (9-20); CALCIUM 8.2 mg/dl (8.6-10.4); GFR AFRICAN-AMERICAN > 60; GFR NON-AFRICAN AMERICAN > 60
[2017-07-25 07:54] LABS: BASO % 0.5 % (0.0-2.0); EOS # 0.4 K/uL (0.0-0.7); EOS % 5.7 % (0.0-4.0); HEMOGLOBIN 14.3 g/dL (12.0-18.0); LYMPH # 1.8 K/uL (1.0-4.3); MEAN CELL VOLUME 90.8 fL (80.0-94.0); MEAN CORPUSCULAR HEMOGLOBIN 30.4 pg (27.0-31.0); MEAN CORPUSCULAR HGB CONC 33.4 g/dL (33.0-37.0); MEAN PLATELET VOLUME 8.4 fL (7.2-11.7); MONO # 0.6 K/uL (0.0-0.8); MONO % 8.9 % (0.0-10.0); NEUT # 3.6 K/uL (1.8-7.0); NEUT % 56.9 % (50.0-75.0); NRBC % 0.4 % (0.0-2.0); RBC 4.71 Mil/uL (4.40-5.90); WHITE BLOOD COUNT 6.3 K/uL (4.8-10.8)
[2017-07-25] MEDS: Pantoprazole 40 mg EC Tab PO SCH (09:14)
[2017-07-25] MEDS: NIFEdipine 60 mg ER Tab PO SCH (09:16)
[2017-07-25] MEDS: Naproxen 550 mg Tab PO PRN ×2 (09:23→18:39)
[2017-07-25] MEDS ORDERED: Silver Sulfadiazine 1% Cream (20 gm) TOP SCH (10:00)
--- NOTE | 2017-07-25 14:36 | CP.PCM.DIS ---
Provider - Provider Date of Admission: 07/20/17 16:57 Attending physician: Angel Ward Jr, MD Time Spent in preparation of Discharge (in minutes): 30 Hospital Course - Lab Results Lab Results: Most Recent Lab Values WBC 6.3 K/uL (4.8-10.8) 07/25/17 07:16 RBC 4.71 Mil/uL (4.40-5.90) 07/25/17 07:16 Hgb 14.3 g/dL (12.0-18.0) 07/25/17 07:16 Hct 42.8 % (35.0-51.0) 07/25/17 07:16 MCV 90.8 fL (80.0-94.0) 07/25/17 07:16 MCH 30.4 pg (27.0-31.0) 07/25/17 07:16 MCHC 33.4 g/dL (33.0-37.0) 07/25/17 07:16 RDW 14.0 % (11.5-14.5) 07/25/17 07:16 Plt Count 239 K/uL (130-400) 07/25/17 07:16 MPV 8.4 fL (7.2-11.7) 07/25/17 07:16 Neut % (Auto) 56.9 % (50.0-75.0) 07/25/17 07:16 Lymph % (Auto) 28.0 % (20.0-40.0) 07/25/17 07:16 Frederick % (Auto) 8.9 % (0.0-10.0) 07/25/17 07:16 Eos % (Auto) 5.7 % (0.0-4.0) H 07/25/17 07:16 Baso % (Auto) 0.5 % (0.0-2.0) 07/25/17 07:16 Neut # (Auto) 3.6 K/uL (1.8-7.0) 07/25/17 07:16 Lymph # (Auto) 1.8 K/uL (1.0-4.3) 07/25/17 07:16 Frederick # (Auto) 0.6 K/uL (0.0-0.8) 07/25/17 07:16 Eos # (Auto) 0.4 K/uL (0.0-0.7) 07/25/17 07:16 Baso # (Auto) 0.0 K/uL (0.0-0.2) 07/25/17 07:16 PT 13.7 SECONDS (9.7-12.2) H 07/20/17 14:04 INR 1.2 07/20/17 14:04 APTT 29 SECONDS (21-34) 07/20/17 14:04 Sodium 140 mmol/L (132-148) 07/25/17 07:16 Potassium 4.1 mmol/L (3.6-5.2) 07/25/17 07:16 Chloride 95 mmol/L (98-107) L 07/25/17 07:16 Carbon Dioxide 34 mmol/L (22-30) H 07/25/17 07:16 Anion Gap 15 (10-20) 07/25/17 07:16 BUN 17 mg/dL (9-20) 07/25/17 07:16 Creatinine 0.9 mg/dL (0.8-1.5) 07/25/17 07:16 Est GFR ( Amer) > 60 07/25/17 07:16 Est GFR (Non-Af Amer) > 60 07/25/17 07:16 Random Glucose 105 mg/dL (75-110) 07/25/17 07:16 Calcium 8.2 mg/dl (8.6-10.4) L 07/25/17 07:16 Total Bilirubin 0.6 mg/dL (0.2-1.3) 07/25/17 07:16 AST 30 U/L (17-59) 07/25/17 07:16 ALT 33 U/L (21-72) 07/25/17 07:16 Alkaline Phosphatase 81 U/L (38-126) 07/25/17 07:16 Total Creatine Kinase 104 U/L (55-170) 07/20/17 15:10 CK-MB (Mass) 1.12 ng/mL (0.0-3.38) 07/20/17 15:10 NT-Pro-B Natriuret Pep 114 pg/mL (0-900) 07/20/17 15:10 Total Protein 8.2 g/dL (6.3-8.3) 07/25/17 07:16 Albumin 3.9 g/dL (3.5-5.0) 07/25/17 07:16 Globulin 4.4 gm/dL (2.2-3.9) H 07/25/17 07:16 Albumin/Globulin Ratio 0.9 (1.0-2.1) L 07/25/17 07:16 - Hospital Course Hospital Course: As per admission documentation, Patient is a 67 year old male with PMHx Cardiac Arrthymia s/p ICD placement, hypertension, severe morbid obesity who presents to the hospital complaining of painful leg swelling. Patient states that he has been dealing with this for the past few weeks, including a hospitalization for 7 days at [facility] from 06/27/17-. The patient states he was given an antibiotic which did not help, so he decided to go to [facility], where he was admitted and discharged. He was unable to get his medications due to a problem with his health insurance, so he has not taken any of his medications for the last 3 days. Over these three days, his legs have gotten progressively more swollen. He states that he was able to walk three days ago but over this time, he now needs to use a rolling walker. He states he also needs to stop a lot more often because he becomes short of breath. He denies any other symptoms at this time. Denies fevers, chills, nausea, vomiting, diarrhea, constipation, chest pain, abdominal pain, headaches, blurred vision, numbness or tingling. Hospital Course, Patient was admitted to the hospital for lower extremity edema b/l with a hx of CHF. Patient admitted that he had not taken his medications for a few days prior to being admitted. Patient was restarted on his home medications with an increase in his lasix to 60mg iv q12h. He was stable throughout his hospital course with no acute events. He complained of a cough and was started on a Z- Antonio. Patient was discharged with a script for 2 days to complete the course of antibiotics. Unna boots were placed on the last day (07/25/17) of admission prior to discharge. Patient's lower extremity edema improved drastically prior to discharge. Lower extremity duplex 07/20: No DVTs b/l CXR 07/20/17 - Haziness in the right lower lobe could represent atelectasis/ fibrosis or pneumonia. Follow-up is advised. Persistent cardiomegaly and pulmonary venous congestion. Discharge Instructions, Patient is to be discharged to [facility] as per Dr. Ward. Patient is to continue to take his medications as directed by his primary care physician. He was instructed to talk to the social workers at the rehab center about applying for Medicare Part D to help pay for his medications. The importance of medication adherence was stressed to the patient. Patient was given two new prescriptions upon discharge that he is to continue while in the rehab facility: Azithromycin 250mg PO daily x2 days. Silvadene apply to affected area twice per day. Patient is to wear Unna Boots for up to 7 days. This is just a brief summary the events that occurred during the patient's hospital stay. Please see EMR for complete detail. - Constitutional Appears: Well (morbidly obese), Non-toxic, No Acute Distress - Head Exam Head Exam: ATRAUMATIC, NORMOCEPHALIC - Eye Exam Eye Exam: EOMI, Normal appearance, PERRL - ENT Exam ENT Exam: Mucous Membranes Moist - Respiratory Exam Respiratory Exam: Decreased Breath Sounds (mostly like due to body habitus), Clear to Ausculation Bilateral, NORMAL BREATHING PATTERN. absent: Accessory Muscle Use, Rales, Rhonchi, Wheezes, Respiratory Distress - Cardiovascular Exam Cardiovascular Exam: REGULAR RHYTHM, +S1, +S2 - GI/Abdominal Exam GI & Abdominal Exam: Soft, Normal Bowel Sounds. absent: Distended (morbidly obese), Firm, Guarding, Rigid, Tenderness - Extremities Exam Extremities Exam: Calf Tenderness (erythematous with chronic venous stasis changes. No open wounds or blisters.), Pedal Edema (2+ up to knees b/l) - Neurological Exam Neurological Exam: Alert, Awake - Psychiatric Exam Psychiatric exam: Normal Affect, Normal Mood - Skin Skin Exam: Dry, Warm Discharge Exam - Head Exam Head Exam: ATRAUMATIC, NORMOCEPHALIC Discharge Plan - Discharge Medications Prescriptions: Azithromycin [Zithromax] 250 mg PO DAILY #2 tab Silver Sulfadiazine 1% 20 gm [Silvadene 1% 20 gm] 1 appl TOP BID #1 tube - Follow Up Plan Condition: FAIR Disposition: REHAB FACILITY/REHAB UNIT Instructions: Cellulitis and Erysipelas (Skin Infections), Azithromycin ( Systemic), Heart Failure, Adult (DC), Cellulitis (Skin Infection), Adult (DC), Silver Sulfadiazine, Cellulitis (DC) Additional Instructions: Patient is to be discharged to [facility] as per Dr. Ward. Patient is to continue to take his medications as directed by his primary care physician. He was instructed to talk to the social workers at the rehab center about applying for Medicare Part D to help pay for his medications. The importance of medication adherence was stressed to the patient. Patient was given two new prescriptions upon discharge that he is to continue while in the rehab facility: Azithromycin 250mg PO daily x2 days. Silvadene apply to affected area twice per day. Patient is to wear Unna Boots for up to 7 days. Referrals: Neeraj Burton MD [Staff Provider] - Angel Ward Jr., MD [Medical Doctor] - Clinical Quality Measures - CQM - Heart Failure Ejection Fraction: Less Than 40 % Left Ventricular Function to be assessed after discharge: No FLAVIA Inhibitor Prescribed: No Contraindication/Reason for not providing: arb Beta-Felicia Prescribed: Carvedilol Angiotensin II Receptor Felicia Prescribed: Yes AnticoagulationTherapy for Atrial Fibrillation/Atrialflutter: No Contraindication/Reason for not providing: NSR Aldosterone Antagonist Prescribed: No Contraindication/Reason for not providing: on multiple other bp meds Hydralazine Nitrate Prescribed: No Contraindication/Reason for not providing: on multiple other bp meds Implantable Cardioverter Defibrillator Therapy: No Contraindication/Reason for not providing: not indicated Cardiac Resynchronization Therapy Prescribed: No Contraindication/Reason for not providing: NSR
[2017-07-25 15:54] VITALS: BP 131/76; PULSE 72; RESP 23; TEMP 98.3
[2017-07-25 18:40] VITALS: PULSE 73
[2017-07-25] MEDS: Digoxin 125 mcg (0.125 mg) Tab PO SCH (18:40)
== END 2017-07-25 20:17 | DRG 603 ==
LOC: C.ER 11:54 → C.9E 16:57 → C.3T 18:28
PROVIDERS: ADMIT Internal Medicine; ATTEND Internal Medicine
DX: L03.116 Cellulitis of left lower limb (principal); L03.115 Cellulitis of right lower limb; I87.2 Venous insufficiency (chronic) (peripheral); I11.0 Hypertensive heart disease with heart failure; I50.9 Heart failure, unspecified; E66.01 Morbid (severe) obesity due to excess calories; Z68.43 Body mass index [BMI] 50.0-59.9, adult; G47.00 Insomnia, unspecified; M19.90 Unspecified osteoarthritis, unspecified site; Z79.82 Long term (current) use of aspirin; Z79.899 Other long term (current) drug therapy; Z87.891 Personal history of nicotine dependence; Z95.810 Presence of automatic (implantable) cardiac defibrillator; Z98.84 Bariatric surgery status; Z59.0 Homelessness